=== PATIENT | male | born 1960 | race Caucasian/White ===

== ENCOUNTER 2016-06-13 09:45 | Emergency (ER) | payer OTHER, MEDICARE ==
--- NOTE | 2016-06-13 11:05 | ER Document Report ---
ED Medical Screen (RME) - General Time seen by provider: 11:02 Mode of Arrival: Ambulatory Information source: Patient TRAVEL OUTSIDE OF THE [place] IN LAST 30 DAYS: No <EWA CHILEL - Last Filed: 06/13/16 10:59> <CLIFFIBRAHIMA Morgan - Last Filed: 06/13/16 12:04> - General Chief Complaint: General Weakness Stated Complaint: POSSIBLE STROKE LIKE SYMPTOMS Notes: 55-year-old male complaining of generalized weakness and shaking since . EMT came to the house and the thought was anxiety he was given Valium. Take lithium as a mood stabilizer. PCP is Dr. Alcides Romero. He is confused thoughts at times. His son is here with him. (EWA CHILEL) - Related Data Allergies/Adverse Reactions: topiramate [From Topamax] Allergy (Verified 06/13/16 09:55) ziprasidone HCl [From Geodon] Allergy (Verified 06/13/16 09:55) ziprasidone mesylate [From Geodon] Allergy (Verified 06/13/16 09:55) Past Medical History - Past Medical History Cardiac Medical History: Reports: Hx Hypertension Denies: Hx Coronary Artery Disease, Hx Heart Attack Pulmonary Medical History: Reports: Hx Pneumonia Denies: Hx Asthma, Hx Bronchitis, Hx COPD Neurological Medical History: Denies: Hx Cerebrovascular Accident, Hx Seizures Endocrine Medical History: Reports: Hx Hypothyroidism Renal/ Medical History: Reports: Hx Kidney Stones. Denies: Hx Peritoneal Dialysis GI Medical History: Reports: Hx Hiatal Hernia - x2 Musculoskeltal Medical History: Reports Hx Arthritis Psychiatric Medical History: Reports: Hx Bipolar Disorder, Hx Depression Past Surgical History: Reports: Hx Abdominal Surgery - colonoscopy 01/2013, intestional rupture, Hx Appendectomy, Hx Cholecystectomy, Hx Kidney (Renal Surgery) - Left kidney cyst drainage, Hx Orthopedic Surgery - R elbow, R knee, Hx Tonsillectomy - Immunizations Hx Diphtheria, Pertussis, Tetanus Vaccination: Yes <EWA CHILEL - Last Filed: 06/13/16 10:59> Course - Laboratory Result Diagrams: 06/13/16 11:40 06/13/16 11:40 - Diagnostic Test Radiology reviewed: Reports reviewed - CT: No acute process - EKG Interpretation by Ia EKG shows normal: Sinus rhythm Rate: Normal - Heart rate 51, nonspecific ST flattening but no evidence of acute injury, normal QRS. <IBRAHIMA CORONADO - Last Filed: 06/13/16 12:04> - Vital Signs Vital signs: Temp Pulse Resp BP Pulse Ox 98.3 F 56 L 18 133/75 H 100 06/13/16 09:51 06/13/16 09:51 06/13/16 09:51 06/13/16 09:51 06/13/16 11:33 - Laboratory Laboratory results interpreted by me: 06/13/16 11:40 WBC 12.0 H MCHC 31.8 L RDW 16.9 H Seg Neutrophils % 78.1 H Absolute Neutrophils 9.4 H
[2016-06-13 12:01] LABS: ABSOLUTE BASOPHILS # (AUTO) 0.1 10^3/uL (0.0-0.2); ABSOLUTE EOSINOPHILS # (AUTO) 0.3 10^3/uL (0.0-0.6); ABSOLUTE LYMPHOCYTES (AUTO) 1.7 10^3/uL (0.5-4.7); ABSOLUTE MONOCYTES (AUTO) 0.6 10^3/uL (0.1-1.4); ABSOLUTE NEUT (AUTO) 9.4 10^3/uL (1.7-8.2); BASOPHILS % (AUTO) 0.7 % (0-2); EOSINOPHILS % (AUTO) 2.1 % (0-6); HEMATOCRIT 45.7 % (37.9-51.0); HEMOGLOBIN 14.5 g/dL (13.5-17.0); HGB HCT DIFFERENCE -2.2; LYMPHOCYTES % (AUTO) 13.8 % (13-45); MEAN CORPUSCULAR HEMOGLOBIN 28.6 pg (27.0-33.4); MEAN CORPUSCULAR HGB CONC 31.8 g/dL (32.0-36.0); MEAN CORPUSCULAR VOLUME 90 fl (80-97); MONOCYTES % (AUTO) 5.3 % (3-13); RED BLOOD COUNT 5.08 10^6/uL (4.35-5.55); RED CELL DISTRIBUTION WIDTH 16.9 % (11.5-14.0); SEGMENTED NEUTROPHILS % (AUTO) 78.1 % (42-78)
--- NOTE | 2016-06-13 12:03 | ER Document Report ---
ED General - General Mode of Arrival: Ambulatory Information source: Patient TRAVEL OUTSIDE OF THE [place] IN LAST 30 DAYS: No - HPI Patient complains to provider of: Leg Weakness Onset: Other - 06/11/2016 Associated symptoms: Weakness, Other - Confusion <RENETTA PENALOZA - Last Filed: 06/13/16 12:39> <IBRAHIMA CORONADO - Last Filed: 06/13/16 14:33> - General Chief Complaint: General Weakness Stated Complaint: POSSIBLE STROKE LIKE SYMPTOMS Notes: Patient is a 55-year-old male presenting to the emergency department concerned of weakness and trembling in his legs after he worked out on 2016. The leg weakness has improved slightly since then, but he has had increased confusion and loss of appetite. Patient also complains of epigastric abdominal pain and subjective fever. Patient denies diarrhea, vomiting, or any cold symptoms. Patient has a history of stroke 5 years ago, and he was scheduled to get an MRI, but did not get that performed due to his bipolar disorder, anxiety rendering him unable to sit still for 90 minutes. Patient also mentions that "something of axis in my brain has a chunk of fat on it." Patient's primary care physician is Dr. Dubon. (RENETTA PENALOZA) - Related Data Allergies/Adverse Reactions: topiramate [From Topamax] Allergy (Verified 06/13/16 09:55) ziprasidone HCl [From Geodon] Allergy (Verified 06/13/16 09:55) ziprasidone mesylate [From Geodon] Allergy (Verified 06/13/16 09:55) Past Medical History - General Information source: Patient, [facility] Records - Social History Smoking Status: Current Every Day Smoker Chew tobacco use (# tins/day): - 15 Frequency of alcohol use: None Drug Abuse: None Family History: Reviewed & Not Pertinent Patient has suicidal ideation: No Patient has homicidal ideation: No - Past Medical History Cardiac Medical History: Reports: Hx Hypertension Denies: Hx Coronary Artery Disease, Hx Heart Attack Pulmonary Medical History: Reports: Hx Pneumonia Denies: Hx Asthma, Hx Bronchitis, Hx COPD Neurological Medical History: Denies: Hx Cerebrovascular Accident, Hx Seizures Endocrine Medical History: Reports: Hx Hypothyroidism Renal/ Medical History: Reports: Hx Kidney Stones. Denies: Hx Peritoneal Dialysis GI Medical History: Reports: Hx Hiatal Hernia - x2 Musculoskeltal Medical History: Reports Hx Arthritis Psychiatric Medical History: Reports: Hx Bipolar Disorder, Hx Depression Past Surgical History: Reports: Hx Abdominal Surgery - colonoscopy 01/2013, intestional rupture, Hx Appendectomy, Hx Cholecystectomy, Hx Kidney (Renal Surgery) - Left kidney cyst drainage, Hx Orthopedic Surgery - R elbow, R knee, Hx Tonsillectomy - Immunizations Hx Diphtheria, Pertussis, Tetanus Vaccination: Yes <RENETTA PENALOZA - Last Filed: 06/13/16 12:39> Review of Systems - Review of Systems Constitutional: No symptoms reported EENT: No symptoms reported Cardiovascular: No symptoms reported Respiratory: No symptoms reported Gastrointestinal: No symptoms reported Genitourinary: No symptoms reported Male Genitourinary: No symptoms reported Musculoskeletal: No symptoms reported Skin: No symptoms reported Hematologic/Lymphatic: No symptoms reported Neurological/Psychological: See HPI, Confusion, Weakness, Tremor -: Yes All other systems reviewed and negative <RENETTA PENALOZA - Last Filed: 06/13/16 12:39> Physical Exam <RENETTA PENALOZA - Last Filed: 06/13/16 12:39> <IBRAHIMA CORONADO - Last Filed: 06/13/16 14:33> - Vital signs Vitals: Temp Pulse Resp BP Pulse Ox 98.3 F 56 L 18 133/75 H 98 06/13/16 09:51 06/13/16 09:51 06/13/16 09:51 06/13/16 09:51 06/13/16 09:51 - Notes Notes: GENERAL: VS as per nursing doc. Well-appearing, well-nourished and in no acute distress. Tremulous and anxious HEAD: Atraumatic, normocephalic. EYES: Pupils equal round and reactive to light, extraocular movements intact, sclera anicteric, no conjunctival injection or discharge. ENT: Nares patent, oropharynx clear without exudates. Moist mucous membranes. NECK: Normal range of motion, supple, no carotid bruits. LUNGS: Breath sounds clear to auscultation bilaterally and equal. No wheezes rales or rhonchi. Slightly coarse HEART: Normal S1S2. Regular rate and rhythm without murmurs. Equal peripheral pulses. ABDOMEN: Soft, non-tender. No appreciable mass. EXTREMITIES: Normal range of motion. No calf tenderness. Negative Homans. No edema. NEUROLOGICAL: GCS 15, Cranial nerves II-XII intact. Normal visual olivares. Normal speech without aphasia. No pronator drift. 5/5 RUE strength, 5/5 RLE strength, 5/5 LUE strength, 5/5 LLE strength. Patient is able to hold his extremities up but he is tremulous and they deviate outward. No cerebellar abnormalities including normal finger-nose testing. Negative Babinski, 2+= DTR refelexes. PSYCH: Very anxious appearing. Tremulous. No evidence of hallucinations or delusions. SKIN: Warm, Dry, no cyanosis, Cap refill < 2 sec. (IBRAHIMA CORONADO) Course - Laboratory Result Diagrams: 06/13/16 11:40 06/13/16 11:40 <RENETTA PENALOZA - Last Filed: 06/13/16 12:39> - Laboratory Result Diagrams: 06/13/16 11:40 06/13/16 11:40 <IBRAHIMA CORONADO - Last Filed: 06/13/16 14:33> - Re-evaluation Re-evalutation: 06/13/16 14:30 I reviewed lab findings with the patient and son. 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 He has the ataxia tremors loss of coordination. He will stop the lithium. He has never had lithium levels checked before and it has been increased slowly over the years. [facility]. I do not see signs consistent with acute TIA or CVA. Everything seems more global. (IBRAHIMA CORONADO) - Vital Signs Vital signs: Temp Pulse Resp BP Pulse Ox 98.3 F 56 L 17 114/69 97 06/13/16 09:51 06/13/16 09:51 06/13/16 13:01 06/13/16 13:01 06/13/16 13:01 - Laboratory Laboratory results interpreted by me: 06/13/16 06/13/16 06/13/16 11:40 11:40 11:50 WBC 12.0 H MCHC 31.8 L RDW 16.9 H Seg Neutrophils % 78.1 H Absolute Neutrophils 9.4 H Potassium 5.3 H Urine Ketones TRACE H [place] 1.4 H Discharge <RENETTA PENALOZA - Last Filed: 06/13/16 12:39> <IBRAHIMA CORONADO - Last Filed: 06/13/16 14:33> - Discharge Clinical Impression: Weakness, Loss of coordination, [place] toxicity Condition: Good Disposition: HOME, SELF-CARE Additional Instructions: Stop your lithium. Contact your prescribing physician on Wednesday for follow-up. Use assistance getting around so you do not fall. Return for worsening or concern. Referrals: ZOE WILLS MD [Primary Care Provider] - Follow up in 3-5 days Scribe Attestation: 06/13/16 14:33 I personally performed the services described in the documentation, reviewed and edited the documentation which was dictated to the scribe in my presence, and it accurately records my words and actions. (IBRAHIMA CORONADO) Scribe Documentation - Scribe Written by Ernie:: Renetta Penaloza 06/13/2016 1203 acting as scribe for :: Yasmin <RENETTA PENALOZA - Last Filed: 06/13/16 12:39>
[2016-06-13 12:10] LABS: APPEARANCE,URINE CLEAR; BILIRUBIN,URINE NEGATIVE (NEGATIVE); GLUCOSE, URINE NEGATIVE (NEGATIVE); KETONES,URINE TRACE mg/dL (NEGATIVE); LEUKOCYTE ESTERASE,URINE NEGATIVE (NEGATIVE); NITRITE,URINE NEGATIVE (NEGATIVE); PROTEIN,URINE NEGATIVE (NEGATIVE); UROBILINOGEN,URINE NEGATIVE mg/dL (<2.0)
[2016-06-13 12:19] LABS: ALANINE AMINOTRANSFERASE 38 U/L (21-72); ALBUMIN 3.7 g/dL (3.5-5.0); ALKALINE PHOSPHATASE 69 U/L (38-126); ANION GAP 10 (5-19); ASPARTATE AMINO TRANSFERASE 27 U/L (17-59); BILIRUBIN,DIRECT 0.4 mg/dL (0.0-0.4); BILIRUBIN,TOTAL 0.9 mg/dL (0.2-1.3); BLOOD UREA NITROGEN 11 mg/dL (7-20); CALCIUM 9.9 mg/dL (8.4-10.2); CARBON DIOXIDE 29 mmol/L (22-30); CHLORIDE 104 mmol/L (98-107); CREATINE KINASE 75 U/L (55-170); CREATININE RESULT 1.23 mg/dL (0.52-1.25); GLUCOSE 79 mg/dL (75-110); LITHIUM 1.4 mEq/L (0.6-1.2); MAGNESIUM 2.1 mg/dL (1.6-2.3); POTASSIUM 5.3 mmol/L (3.6-5.0); TOTAL PROTEIN 6.7 g/dL (6.3-8.2)
[2016-06-13 12:23] LABS: ALCOHOL < 10 mg/dL (NONE DETECTED)
[2016-06-13 12:29] LABS: URINE BARBITURATES SCREEN NEGATIVE; URINE METHADONE SCREEN NEGATIVE; URINE OPIATES LOW NEGATIVE; URINE PHENCYCLIDINE SCREEN NEGATIVE
[2016-06-13 12:44] LABS: CREATINE KINASE MB 0.35 ng/mL (<4.55); TROPONIN I < 0.012 ng/mL
[2016-06-13] MEDS ORDERED: NORMAL SALINE 500 ML IV ONE (14:07)
[2016-06-13 14:47] VITALS: BP 128/85
--- NOTE | 2016-06-14 17:04 | EKG REPORT ---
SEVERITY:- BORDERLINE ECG - SINUS RHYTHM BORDERLINE T WAVE ABNORMALITIES : Confirmed by: Denise Garcia MD 14-Jun-2016 17:02:22
== END 2016-06-13 14:51 | disposition home or self-care (01) ==
LOC: ER 09:45
DX: R53.1 Weakness (principal); R10.13 Epigastric pain; R41.0 Disorientation, unspecified; R63.0 Anorexia; F17.200 Nicotine dependence, unspecified, uncomplicated; Z79.899 Other long term (current) drug therapy
CPT/HCPCS: 93005; 99285; 96360; 36415; 82553; 82962; 80307 ×2; 82550; 83690; 80178; 83735; 85025; 80053; 81001; 84484; 70450; 93010; J7040

== ENCOUNTER 2016-06-25 16:51 | Emergency (ER) | payer OTHER, MEDICARE ==
[2016-06-25] MEDS ORDERED: ONDANSETRON HCL INJ/PF 4 MG/2 ML SDV IV ONE (18:12)
[2016-06-25] MEDS ORDERED: HYDROMORPHONE HCL INJ/PF 2 MG/ML AMPULE IV ONE (18:12)
[2016-06-25] MEDS ORDERED: NORMAL SALINE 1000 ML 1,000 ML IV ONE (18:12)
--- NOTE | 2016-06-25 18:18 | ER Document Report ---
ED Medical Screen (RME) - General Chief Complaint: Abdominal Pain Stated Complaint: FEVER,ABDOMINAL PAIN Mode of Arrival: Ambulatory Information source: Patient TRAVEL OUTSIDE OF THE [place] IN LAST 30 DAYS: No - HPI Onset: Yesterday - LAST PM Onset/Duration: Sudden Quality of pain: Achy, Dull Severity: Moderate Associated Symptoms: Abdominal pain, Chills, Fever, Nausea, Vomiting Exacerbated by: Denies Relieved by: Denies Similar symptoms previously: Yes - PANCREATITIS Recently seen / treated by doctor: No - Related Data Smoking: Non-smoker Frequency of alcohol use: None Drug Abuse: None Allergies/Adverse Reactions: topiramate [From Topamax] Allergy (Verified 06/25/16 18:01) ziprasidone HCl [From Geodon] Allergy (Verified 06/25/16 18:01) ziprasidone mesylate [From Geodon] Allergy (Verified 06/25/16 18:01) Past Medical History - General Information source: Patient - Social History Cigarette use (# per day): No Chew tobacco use (# tins/day): No Frequency of alcohol use: None Drug Abuse: None Lives with: Family Family history: Reviewed & Not Pertinent - Past Medical History Cardiac Medical History: Reports: Hx Hypertension Denies: Hx Coronary Artery Disease, Hx Heart Attack Pulmonary Medical History: Reports: Hx Pneumonia Denies: Hx Asthma, Hx Bronchitis, Hx COPD Neurological Medical History: Denies: Hx Cerebrovascular Accident, Hx Seizures Endocrine Medical History: Reports: Hx Hypothyroidism Renal/ Medical History: Reports: Hx Kidney Stones. Denies: Hx Peritoneal Dialysis GI Medical History: Reports: Hx Hiatal Hernia - x2, Other - PANCREATITIS Musculoskeltal Medical History: Reports Hx Arthritis Psychiatric Medical History: Reports: Hx Bipolar Disorder, Hx Depression Past Surgical History: Reports: Hx Abdominal Surgery - colonoscopy 01/2013, intestional rupture, Hx Appendectomy, Hx Cholecystectomy, Hx Kidney (Renal Surgery) - Left kidney cyst drainage, Hx Orthopedic Surgery - R elbow, R knee, Hx Tonsillectomy - Immunizations Hx Diphtheria, Pertussis, Tetanus Vaccination: Yes Review of Systems - Review of Systems Constitutional: See HPI EENT: No symptoms reported Cardiovascular: No symptoms reported Respiratory: No symptoms reported Gastrointestinal: See HPI Genitourinary: No symptoms reported Musculoskeletal: No symptoms reported Neurological/Psychological: No symptoms reported Physical Exam - Vital signs Vitals: Temp Pulse Resp BP Pulse Ox 98.5 F 65 18 123/75 97 06/25/16 16:56 06/25/16 16:56 06/25/16 16:56 06/25/16 16:56 06/25/16 16:56 Interpretation: Normal - General General appearance: Alert In distress: Mild - HEENT Head: Normocephalic Eyes: Normal Conjunctiva: Normal Ears: Normal Nasal: Normal Mouth/Lips: Normal Mucous membranes: Dry Pharynx: Normal Neck: Normal - Respiratory Respiratory status: No respiratory distress - Cardiovascular Rhythm: Regular - Abdominal Tenderness: Tender - EPIGASTRIUM - Extremities General upper extremity: Normal inspection General lower extremity: Normal inspection - Neurological Neuro grossly intact: Yes Cognition: Normal Orientation: AAOx4 - Psychological Associated symptoms: Normal affect, Normal mood - Skin Skin Temperature: Warm Skin Moisture: Dry Skin Color: Normal Skin Turgor: Elastic Course - Vital Signs Vital signs: Temp Pulse Resp BP Pulse Ox 98.5 F 65 18 123/75 97 06/25/16 16:56 06/25/16 16:56 06/25/16 16:56 06/25/16 16:56 06/25/16 16:56
[2016-06-25 18:34] LABS: ABSOLUTE BASOPHILS # (AUTO) 0.1 10^3/uL (0.0-0.2); ABSOLUTE EOSINOPHILS # (AUTO) 0.1 10^3/uL (0.0-0.6); ABSOLUTE LYMPHOCYTES (AUTO) 1.9 10^3/uL (0.5-4.7); ABSOLUTE MONOCYTES (AUTO) 0.7 10^3/uL (0.1-1.4); ABSOLUTE NEUT (AUTO) 7.8 10^3/uL (1.7-8.2); BASOPHILS % (AUTO) 0.5 % (0-2); EOSINOPHILS % (AUTO) 1.2 % (0-6); HEMATOCRIT 51.3 % (37.9-51.0); HEMOGLOBIN 16.4 g/dL (13.5-17.0); HGB HCT DIFFERENCE -2.1; MEAN CORPUSCULAR HEMOGLOBIN 28.4 pg (27.0-33.4); MEAN CORPUSCULAR HGB CONC 32.1 g/dL (32.0-36.0); MEAN CORPUSCULAR VOLUME 88 fl (80-97); MONOCYTES % (AUTO) 6.2 % (3-13); RED CELL DISTRIBUTION WIDTH 17.6 % (11.5-14.0); SEGMENTED NEUTROPHILS % (AUTO) 74.1 % (42-78); WHITE BLOOD COUNT 10.5 10^3/uL (4.0-10.5)
[2016-06-25 18:37] LABS: APPEARANCE,URINE SLIGHTLY-CLOUDY; BILIRUBIN,URINE NEGATIVE (NEGATIVE); GLUCOSE, URINE NEGATIVE (NEGATIVE); KETONES,URINE TRACE mg/dL (NEGATIVE); LEUKOCYTE ESTERASE,URINE NEGATIVE (NEGATIVE); NITRITE,URINE NEGATIVE (NEGATIVE); PROTEIN,URINE 30 mg/dL (NEGATIVE); URINE SPECIFIC GRAVITY 1.024; UROBILINOGEN,URINE NEGATIVE mg/dL (<2.0)
[2016-06-25] MEDS ORDERED: PANTOPRAZOLE SODIUM 40 MG VIAL IV ONE (18:51)
--- NOTE | 2016-06-25 18:51 | ER Document Report ---
ED General - General Chief Complaint: Abdominal Pain Stated Complaint: FEVER,ABDOMINAL PAIN Mode of Arrival: Ambulatory Notes: This is a 55-year-old male with a history of bipolar disorder and anxiety as well as hypertension and prior pancreatitis who presents for evaluation of epigastric pain. He states that he feels that he may have pancreatitis again. His symptoms began about 2230 last night when he states he was laying in bed and suddenly felt as if he was "punched in the gut" he has had epigastric pain since. He has had nausea and dry heaves today and has not tolerated any po except a few sips of water. One episode of diarrhea this morning. No fevers, chills, dysuria, chest pain, SOB. States he quit drinking alcohol about 6 years ago. S/P cholecystectomy 04/2015 TRAVEL OUTSIDE OF THE [place] IN LAST 30 DAYS: No - Related Data Allergies/Adverse Reactions: topiramate [From Topamax] Allergy (Verified 06/25/16 18:01) ziprasidone HCl [From Geodon] Allergy (Verified 06/25/16 18:01) ziprasidone mesylate [From Geodon] Allergy (Verified 06/25/16 18:01) Past Medical History - General Information source: Patient, [facility] Records - Social History Smoking Status: Current Every Day Smoker Cigarette use (# per day): No Chew tobacco use (# tins/day): No Frequency of alcohol use: None Drug Abuse: None Lives with: Family Family History: Reviewed & Not Pertinent Patient has suicidal ideation: No Patient has homicidal ideation: No - Past Medical History Cardiac Medical History: Reports: Hx Hypertension Denies: Hx Coronary Artery Disease, Hx Heart Attack Pulmonary Medical History: Reports: Hx Pneumonia Denies: Hx Asthma, Hx Bronchitis, Hx COPD Neurological Medical History: Denies: Hx Cerebrovascular Accident, Hx Seizures Endocrine Medical History: Reports: Hx Hypothyroidism Renal/ Medical History: Reports: Hx Kidney Stones. Denies: Hx Peritoneal Dialysis GI Medical History: Reports: Hx Hiatal Hernia - x2, Other - PANCREATITIS Musculoskeltal Medical History: Reports Hx Arthritis Psychiatric Medical History: Reports: Hx Bipolar Disorder, Hx Depression Past Surgical History: Reports: Hx Abdominal Surgery - colonoscopy 01/2013, intestional rupture, Hx Appendectomy, Hx Cholecystectomy, Hx Kidney (Renal Surgery) - Left kidney cyst drainage, Hx Orthopedic Surgery - R elbow, R knee, Hx Tonsillectomy - Immunizations Hx Diphtheria, Pertussis, Tetanus Vaccination: Yes Review of Systems - Review of Systems Notes: REVIEW OF SYSTEMS: CONSTITUTIONAL : Denies fever, chills, or sweats. Denies recent illness. EENT: Denies eye, ear, throat, or mouth pain or symptoms. Denies nasal or sinus congestion. CARDIOVASCULAR: Denies chest pain. RESPIRATORY: Denies cough, cold, or chest congestion. Denies shortness of breath, difficulty breathing, or wheezing. GASTROINTESTINAL: As per history of present illness GENITOURINARY: Denies difficulty urinating, painful urination, burning, frequency, or blood in urine. MUSCULOSKELETAL: Denies neck or back pain or joint pain or swelling. SKIN: Denies rash or skin lesions. HEMATOLOGIC : Denies easy bruising or bleeding. LYMPHATIC: Denies swollen, enlarged glands. NEUROLOGICAL: Denies altered mental status or loss of consciousness. Denies headache. PSYCHIATRIC: Denies anxiety or stress or depression. ALL OTHER SYSTEMS REVIEWED AND NEGATIVE. Physical Exam - Vital signs Vitals: Temp Pulse Resp BP Pulse Ox 98.5 F 65 18 123/75 97 06/25/16 16:56 06/25/16 16:56 06/25/16 16:56 06/25/16 16:56 06/25/16 16:56 - Notes Notes: PHYSICAL EXAMINATION: GENERAL: Well-appearing, well-nourished and in no acute distress. Pleasant and conversant, somewhat pressured speech. HEAD: Atraumatic, normocephalic. EYES: Pupils equal round and reactive to light, extraocular movements intact, sclera anicteric, conjunctiva are normal. ENT: nares patent, oropharynx clear without exudates. Moist mucous membranes. NECK: Normal range of motion, supple without lymphadenopathy LUNGS: Breath sounds clear to auscultation bilaterally and equal. No wheezes rales or rhonchi. HEART: Regular rate and rhythm without murmurs ABDOMEN: Soft, normoactive bowel sounds. Tenderness to palpation in epigastric area and LUQ. No guarding, no rebound. No masses appreciated. EXTREMITIES: Normal range of motion, no pitting or edema. No cyanosis. NEUROLOGICAL: Cranial nerves grossly intact. Normal speech. No gross focal motor or sensory deficits appreciated. PSYCH: Normal mood, somewhat anxious affect. SKIN: Warm, Dry, normal turgor, no rashes or lesions noted. Course - Re-evaluation Re-evalutation: 06/25/16 22:14 Patient had resolution of symptoms after the GI cocktail. Labs and CT reassuring, no evidence for pancreatitis or surgical issue at this time. Discussed dyspepsia, GERD, and dietary modification. Follow up PCP. Return precautions discussed. - Vital Signs Vital signs: Temp Pulse Resp BP Pulse Ox 98.5 F 65 15 109/64 95 06/25/16 16:56 06/25/16 16:56 06/25/16 21:47 06/25/16 21:47 06/25/16 21:47 - Laboratory Result Diagrams: 06/25/16 18:05 06/25/16 18:05 Laboratory results interpreted by me: 06/25/16 06/25/16 06/25/16 18:05 18:05 18:05 RBC 5.80 H Hct 51.3 H RDW 17.6 H Sodium 145.5 H Glucose 71 L Direct Bilirubin 0.5 H ALT 75 H Urine Protein 30 H Urine Ketones TRACE H Urine Ascorbic Acid 40 H Discharge - Discharge Clinical Impression: Dyspepsia, Anxiety Condition: Stable Disposition: HOME, SELF-CARE Additional Instructions: Reflux Disease (GERD) Gastro-Esophageal Reflux Disease (GERD) is caused by stomach acid refluxing back up into the esophagus. The valve at the end of the esophagus may be weak. This is common in persons with a hiatal hernia. GERD symptoms can include indigestion, chest pain, heartburn, or food "sticking." Certain foods, alcohol, and aspirin can make GERD worse. Treatment depends on the severity. Usually, antacids or acid-suppressing medicines are used. When the esophagus is acutely inflamed, the physician will often prescribe membrane-protective drugs such as Carafate. Some patients benefit from medication such as Reglan that tightens the valve at the top of the stomach. Avoid those foods that bring on your symptoms. For many people, these foods are coffee, chocolate, onions, garlic, and carbonated drinks. Don't use alcohol, aspirin, caffeine, or tobacco. Don't eat late at night -- within 4 hours of bedtime. Don't over-eat. If necessary, elevate the head of your bed about 4 inches so that stomach acid will not roll up into your esophagus. Call the doctor if you develop severe chest pain, inability to swallow fluids, fever, or worsening symptoms. Prescriptions: Sucralfate [Carafate Susp 1 Gm/10 Ml Udcup] 1 gm PO QHS #200 ud Referrals: ZOE WILLS MD [Primary Care Provider] - Follow up in 3-5 days
[2016-06-25 18:57] LABS: ALANINE AMINOTRANSFERASE 75 U/L (21-72); ALKALINE PHOSPHATASE 63 U/L (38-126); ANION GAP 15 (5-19); ASPARTATE AMINO TRANSFERASE 41 U/L (17-59); BILIRUBIN,DIRECT 0.5 mg/dL (0.0-0.4); BILIRUBIN,TOTAL 0.6 mg/dL (0.2-1.3); BLOOD UREA NITROGEN 18 mg/dL (7-20); CALCIUM 9.5 mg/dL (8.4-10.2); CARBON DIOXIDE 29 mmol/L (22-30); CHLORIDE 102 mmol/L (98-107); CREATININE RESULT 1.15 mg/dL (0.52-1.25); GLUCOSE 71 mg/dL (75-110); LIPASE 103.4 U/L (23-300); POTASSIUM 4.8 mmol/L (3.6-5.0); SODIUM 145.5 mmol/L (137-145); TOTAL PROTEIN 7.4 g/dL (6.3-8.2)
[2016-06-25 19:13] LABS: URINE BARBITURATES SCREEN NEGATIVE; URINE METHADONE SCREEN NEGATIVE; URINE OPIATES LOW NEGATIVE; URINE PHENCYCLIDINE SCREEN NEGATIVE
[2016-06-25] MEDS ORDERED: MAG HYDROX/AL HYDROX/SIMETH SUSP 30 ML UDCUP PO ONE (19:17)
[2016-06-25] MEDS ORDERED: METOCLOPRAMIDE HCL ORAL SOLN 10 MG/10 ML UDCUP PO ONE (19:17)
[2016-06-25] MEDS ORDERED: LIDOCAINE 2% VISCOUS SOLN 20 ML UDCUP PO ONE (19:17)
[2016-06-25 22:23] VITALS: BP 119/72
== END 2016-06-25 22:33 | disposition home or self-care (01) ==
LOC: ER 16:51
DX: R10.13 Epigastric pain (principal); F41.9 Anxiety disorder, unspecified; R10.9 Unspecified abdominal pain; R50.9 Fever, unspecified; F31.9 Bipolar disorder, unspecified; F17.200 Nicotine dependence, unspecified, uncomplicated
CPT/HCPCS: 99284; 96374; 96375; 36415; 80307 ×2; 83690; 85025; 80053; 81001; 74177; J3490; J1170; S0164; J2405; J7030

== ENCOUNTER 2016-07-24 11:53 | Emergency (ER) | payer OTHER, MEDICARE ==
--- NOTE | 2016-07-24 12:59 | ER Document Report ---
ED Medical Screen (RME) - General Chief Complaint: Abdominal Pain Stated Complaint: ABDOMINAL PAIN,NAUSEA Time Seen by Provider: 07/24/16 12:52 Mode of Arrival: Ambulatory Information source: Patient TRAVEL OUTSIDE OF THE [place] IN LAST 30 DAYS: No - HPI Onset: Other - 5 DAYS Onset/Duration: Gradual Quality of pain: Achy, Dull Severity: Moderate Associated Symptoms: Nausea, Vomiting Exacerbated by: Denies Relieved by: Other - POSTURE Similar symptoms previously: Yes - CHRONIC RECURRENT PANCRATITIS Recently seen / treated by doctor: Yes - [facility] THIS AM - Related Data Allergies/Adverse Reactions: topiramate [From Topamax] Allergy (Verified 07/24/16 11:57) ziprasidone HCl [From Geodon] Allergy (Verified 07/24/16 11:57) ziprasidone mesylate [From Geodon] Allergy (Verified 07/24/16 11:57) Past Medical History - Social History Family history: Reviewed & Not Pertinent - Past Medical History Cardiac Medical History: Reports: Hx Hypertension Denies: Hx Coronary Artery Disease, Hx Heart Attack Pulmonary Medical History: Reports: Hx Pneumonia Denies: Hx Asthma, Hx Bronchitis, Hx COPD Neurological Medical History: Denies: Hx Cerebrovascular Accident, Hx Seizures Endocrine Medical History: Reports: Hx Hypothyroidism Renal/ Medical History: Reports: Hx Kidney Stones. Denies: Hx Peritoneal Dialysis GI Medical History: Reports: Hx Hiatal Hernia - x2, Other - CHRONIC RECURRENT PANCREATITIS Musculoskeltal Medical History: Reports Hx Arthritis Psychiatric Medical History: Reports: Hx Bipolar Disorder, Hx Depression Past Surgical History: Reports: Hx Abdominal Surgery - colonoscopy 01/2013, intestional rupture, Hx Appendectomy, Hx Cholecystectomy, Hx Kidney (Renal Surgery) - Left kidney cyst drainage, Hx Orthopedic Surgery - R elbow, R knee, Hx Tonsillectomy - Immunizations Hx Diphtheria, Pertussis, Tetanus Vaccination: Yes Review of Systems - Review of Systems Constitutional: No symptoms reported EENT: No symptoms reported Cardiovascular: No symptoms reported Respiratory: No symptoms reported Gastrointestinal: See HPI Physical Exam - Vital signs Vitals: Temp Pulse Resp BP Pulse Ox 98.2 F 63 20 138/90 H 98 07/24/16 11:57 07/24/16 11:57 07/24/16 11:57 07/24/16 11:57 07/24/16 11:57 Interpretation: Hypertensive. No: Tachycardic, Tachypneic, Febrile - General General appearance: Anxious In distress: Mild - HEENT Mucous membranes: Dry - Respiratory Respiratory status: No respiratory distress - Abdominal Inspection: Normal Distension: No distension Tenderness: Tender - EPIGASTRIC Course - Vital Signs Vital signs: Temp Pulse Resp BP Pulse Ox 98.2 F 63 20 138/90 H 98 07/24/16 11:57 07/24/16 11:57 07/24/16 11:57 07/24/16 11:57 07/24/16 11:57
[2016-07-24] MEDS ORDERED: NORMAL SALINE 1000 ML 1,000 ML IV ONE (13:17)
[2016-07-24 14:01] LABS: ALANINE AMINOTRANSFERASE 43 U/L (21-72); ALBUMIN 3.9 g/dL (3.5-5.0); ALKALINE PHOSPHATASE 47 U/L (38-126); ANION GAP 11 (5-19); ASPARTATE AMINO TRANSFERASE 35 U/L (17-59); BILIRUBIN,DIRECT 0.5 mg/dL (0.0-0.4); BILIRUBIN,TOTAL 0.9 mg/dL (0.2-1.3); BLOOD UREA NITROGEN 18 mg/dL (7-20); CALCIUM 9.6 mg/dL (8.4-10.2); CARBON DIOXIDE 28 mmol/L (22-30); CHLORIDE 101 mmol/L (98-107); CREATININE RESULT 1.24 mg/dL (0.52-1.25); GLUCOSE 76 mg/dL (75-110); LIPASE 119.1 U/L (23-300); POTASSIUM 5.1 mmol/L (3.6-5.0); SODIUM 140.2 mmol/L (137-145); TOTAL PROTEIN 7.4 g/dL (6.3-8.2)
[2016-07-24] MEDS ORDERED: ONDANSETRON HCL INJ/PF 4 MG/2 ML SDV IV ONE (14:22)
[2016-07-24] MEDS ORDERED: NORMAL SALINE 1000 ML 1,000 ML IV PRN (14:22)
[2016-07-24] MEDS ORDERED: MORPHINE SULFATE 10 MG/ML INJ IV ONE (14:22)
--- NOTE | 2016-07-24 14:23 | ER Document Report ---
ED GI/ - General Chief Complaint: Abdominal Pain Stated Complaint: ABDOMINAL PAIN,NAUSEA Time Seen by Provider: 07/24/16 12:52 Mode of Arrival: Ambulatory Information source: Patient TRAVEL OUTSIDE OF THE [place] IN LAST 30 DAYS: No - HPI Patient complains to provider of: Abdominal pain Onset: This morning Timing/Duration: Sudden Quality of pain: Sharp, Stabbing Severity at maximum: Moderate Severity in ED: Moderate Pain Level: 4 Location: Epigastric Associated symptoms: Nausea Exacerbated by: Food Relieved by: Denies Similar symptoms previously: Yes Recently seen / treated by doctor: No Notes: 07/24/16 16:10 Patient is a 56-year-old male with a history of pancreatitis, with cholecystectomy last year, who presents to the emergency room complaining of epigastric abdominal pain that is sharp and stabbing in nature, it is been going on intermittently over the past 3-5 days but worsened today, it is associated with nausea one episode of vomiting, no fever, no diarrhea she denies urinary symptoms - Related Data Allergies/Adverse Reactions: topiramate [From Topamax] Allergy (Verified 07/24/16 11:57) ziprasidone HCl [From Geodon] Allergy (Verified 07/24/16 11:57) ziprasidone mesylate [From Geodon] Allergy (Verified 07/24/16 11:57) Past Medical History - General Information source: Patient - Social History Smoking Status: Current Every Day Smoker Family History: Reviewed & Not Pertinent Patient has suicidal ideation: No Patient has homicidal ideation: No - Past Medical History Cardiac Medical History: Reports: Hx Hypertension Denies: Hx Coronary Artery Disease, Hx Heart Attack Pulmonary Medical History: Reports: Hx Pneumonia Denies: Hx Asthma, Hx Bronchitis, Hx COPD Neurological Medical History: Denies: Hx Cerebrovascular Accident, Hx Seizures Endocrine Medical History: Reports: Hx Hypothyroidism Renal/ Medical History: Reports: Hx Kidney Stones. Denies: Hx Peritoneal Dialysis GI Medical History: Reports: Hx Hiatal Hernia - x2, Other - CHRONIC RECURRENT PANCREATITIS Musculoskeltal Medical History: Reports Hx Arthritis Psychiatric Medical History: Reports: Hx Bipolar Disorder, Hx Depression Past Surgical History: Reports: Hx Abdominal Surgery - colonoscopy 01/2013, intestional rupture, Hx Appendectomy, Hx Cholecystectomy, Hx Kidney (Renal Surgery) - Left kidney cyst drainage, Hx Orthopedic Surgery - R elbow, R knee, Hx Tonsillectomy - Immunizations Hx Diphtheria, Pertussis, Tetanus Vaccination: Yes Review of Systems - Review of Systems Constitutional: No symptoms reported EENT: No symptoms reported Cardiovascular: No symptoms reported Respiratory: No symptoms reported Gastrointestinal: Abdominal pain, Nausea, Vomiting Genitourinary: No symptoms reported Male Genitourinary: No symptoms reported Musculoskeletal: No symptoms reported Skin: No symptoms reported Hematologic/Lymphatic: No symptoms reported Neurological/Psychological: No symptoms reported -: Yes All other systems reviewed and negative Physical Exam - Vital signs Vitals: Temp Pulse Resp BP Pulse Ox 98.2 F 63 20 138/90 H 98 07/24/16 11:57 07/24/16 11:57 07/24/16 11:57 07/24/16 11:57 07/24/16 11:57 Interpretation: Normal - General General appearance: Appears well, Alert - HEENT Head: Normocephalic, Atraumatic Eyes: Normal Pupils: PERRL - Respiratory Respiratory status: No respiratory distress Chest status: Nontender Breath sounds: Normal Chest palpation: Normal - Cardiovascular Rhythm: Regular Heart sounds: Normal auscultation Murmur: No - Abdominal Inspection: Normal Distension: No distension Bowel sounds: Normal Tenderness: Tender - Palpate in the epigastric region Organomegaly: No organomegaly - Back Back: Normal, Nontender - Extremities General upper extremity: Normal inspection, Nontender, Normal color, Normal ROM , Normal temperature General lower extremity: Normal inspection, Nontender, Normal color, Normal ROM , Normal temperature, Normal weight bearing. No: Alaina's sign - Neurological Neuro grossly intact: Yes Cognition: Normal Orientation: AAOx4 Ralph Coma Scale Eye Opening: Spontaneous Ralph Coma Scale Verbal: Oriented Ralph Coma Scale Motor: Obeys Commands Ralph Coma Scale Total: 15 Speech: Normal Motor strength normal: LUE, RUE, LLE, RLE Sensory: Normal - Psychological Associated symptoms: Normal affect, Normal mood - Skin Skin Temperature: Warm Skin Moisture: Dry Skin Color: Normal Course - Re-evaluation Re-evalutation: 07/24/16 17:09 Resting comfortably, reports relief of symptoms from GI cocktail, labs were discussed with patient at bedside, follow-up with gastroenterology as an outpatient was recommended, patient will a small amount of pain medication in the meantime, advised to follow-up with gastroenterology within the next week or return if symptoms worsen, patient acknowledges understanding and agreement with this plan - Vital Signs Vital signs: Temp Pulse Resp BP Pulse Ox 98.2 F 63 20 138/90 H 98 07/24/16 11:57 07/24/16 11:57 07/24/16 11:57 07/24/16 11:57 07/24/16 11:57 - Laboratory Result Diagrams: 07/24/16 14:37 07/24/16 13:30 Laboratory results interpreted by me: 07/24/16 07/24/16 07/24/16 13:30 13:30 14:37 RBC 5.86 H RDW 17.8 H Potassium 5.1 H Direct Bilirubin 0.5 H Urine Ketones TRACE H Discharge - Discharge Clinical Impression: Epigastric abdominal pain Condition: Stable Disposition: HOME, SELF-CARE Instructions: Abdominal Pain ([facility]), Oral Narcotic Medication ([facility]), Gastroenterology Additional Instructions: Follow up with your primary care provider and a forge hand in one to 2 days. Return to the emergency room immediately if symptoms worsen or any additional concerns. Prescriptions: Oxycodone HCl/Acetaminophen [Percocet 5-325 mg Tablet] 1 - 2 tab PO ASDIR PRN # 15 tablet PRN Reason:
[2016-07-24 14:35] LABS: APPEARANCE,URINE CLEAR; BILIRUBIN,URINE NEGATIVE (NEGATIVE); GLUCOSE, URINE NEGATIVE (NEGATIVE); KETONES,URINE TRACE mg/dL (NEGATIVE); LEUKOCYTE ESTERASE,URINE NEGATIVE (NEGATIVE); NITRITE,URINE NEGATIVE (NEGATIVE); PROTEIN,URINE NEGATIVE (NEGATIVE); URINE SPECIFIC GRAVITY 1.017; UROBILINOGEN,URINE NEGATIVE mg/dL (<2.0)
[2016-07-24 14:47] LABS: ABSOLUTE BASOPHILS # (AUTO) 0.1 10^3/uL (0.0-0.2); ABSOLUTE EOSINOPHILS # (AUTO) 0.2 10^3/uL (0.0-0.6); ABSOLUTE MONOCYTES (AUTO) 0.7 10^3/uL (0.1-1.4); ABSOLUTE NEUT (AUTO) 4.9 10^3/uL (1.7-8.2); BASOPHILS % (AUTO) 1.3 % (0-2); HEMATOCRIT 48.5 % (37.9-51.0); HEMOGLOBIN 15.8 g/dL (13.5-17.0); HGB HCT DIFFERENCE -1.1; LYMPHOCYTES % (AUTO) 25.5 % (13-45); MEAN CORPUSCULAR HGB CONC 32.6 g/dL (32.0-36.0); MONOCYTES % (AUTO) 8.8 % (3-13); RED BLOOD COUNT 5.86 10^6/uL (4.35-5.55); RED CELL DISTRIBUTION WIDTH 17.8 % (11.5-14.0); SEGMENTED NEUTROPHILS % (AUTO) 61.4 % (42-78)
[2016-07-24 14:54] LABS: MEAN CORPUSCULAR VOLUME 83 fl (80-97)
[2016-07-24] MEDS ORDERED: METOCLOPRAMIDE HCL ORAL SOLN 10 MG/10 ML UDCUP PO ONE (15:51)
[2016-07-24] MEDS ORDERED: LIDOCAINE 2% VISCOUS SOLN 20 ML UDCUP PO ONE (15:51)
[2016-07-24] MEDS ORDERED: MAG HYDROX/AL HYDROX/SIMETH SUSP 30 ML UDCUP PO ONE (15:51)
[2016-07-24 17:34] VITALS: BP 148/83
== END 2016-07-24 17:36 | disposition home or self-care (01) ==
LOC: ER 11:53
DX: R10.13 Epigastric pain (principal); R11.0 Nausea; F17.200 Nicotine dependence, unspecified, uncomplicated
CPT/HCPCS: 99284; 96374; 96375; 36415; 83690; 85025; 80053; 81001; J3490; J2270; J2405; J7030

== ENCOUNTER 2016-07-29 02:57 | Emergency (ER) | payer OTHER, MEDICARE ==
[2016-07-29 03:37] LABS: ABSOLUTE BASOPHILS # (AUTO) 0.1 10^3/uL (0.0-0.2); ABSOLUTE EOSINOPHILS # (AUTO) 0.3 10^3/uL (0.0-0.6); ABSOLUTE LYMPHOCYTES (AUTO) 2.8 10^3/uL (0.5-4.7); ABSOLUTE MONOCYTES (AUTO) 0.9 10^3/uL (0.1-1.4); ABSOLUTE NEUT (AUTO) 4.2 10^3/uL (1.7-8.2); EOSINOPHILS % (AUTO) 3.2 % (0-6); HEMATOCRIT 48.6 % (37.9-51.0); HEMOGLOBIN 15.7 g/dL (13.5-17.0); HGB HCT DIFFERENCE -1.5; LYMPHOCYTES % (AUTO) 33.9 % (13-45); MEAN CORPUSCULAR HEMOGLOBIN 26.9 pg (27.0-33.4); MEAN CORPUSCULAR HGB CONC 32.3 g/dL (32.0-36.0); MEAN CORPUSCULAR VOLUME 83 fl (80-97); MONOCYTES % (AUTO) 10.9 % (3-13); RED BLOOD COUNT 5.84 10^6/uL (4.35-5.55); RED CELL DISTRIBUTION WIDTH 18.1 % (11.5-14.0); WHITE BLOOD COUNT 8.3 10^3/uL (4.0-10.5)
[2016-07-29 03:50] LABS: ALANINE AMINOTRANSFERASE 35 U/L (21-72); ALBUMIN 3.6 g/dL (3.5-5.0); ALKALINE PHOSPHATASE 40 U/L (38-126); ANION GAP 9 (5-19); ASPARTATE AMINO TRANSFERASE 27 U/L (17-59); BILIRUBIN,DIRECT 0.4 mg/dL (0.0-0.4); BILIRUBIN,TOTAL 0.6 mg/dL (0.2-1.3); BLOOD UREA NITROGEN 17 mg/dL (7-20); CALCIUM 9.3 mg/dL (8.4-10.2); CARBON DIOXIDE 29 mmol/L (22-30); CHLORIDE 103 mmol/L (98-107); CREATININE RESULT 1.25 mg/dL (0.52-1.25); GLUCOSE 86 mg/dL (75-110); LIPASE 236.5 U/L (23-300); SODIUM 140.9 mmol/L (137-145); TOTAL PROTEIN 6.9 g/dL (6.3-8.2)
[2016-07-29 03:54] LABS: APPEARANCE,URINE CLEAR; BILIRUBIN,URINE NEGATIVE (NEGATIVE); GLUCOSE, URINE NEGATIVE (NEGATIVE); KETONES,URINE NEGATIVE (NEGATIVE); LEUKOCYTE ESTERASE,URINE TRACE (NEGATIVE); NITRITE,URINE NEGATIVE (NEGATIVE); PROTEIN,URINE NEGATIVE (NEGATIVE); URINE SPECIFIC GRAVITY 1.011; UROBILINOGEN,URINE NEGATIVE mg/dL (<2.0)
--- NOTE | 2016-07-29 04:05 | ER Document Report ---
ED GI/ - General Chief Complaint: Abdominal Pain Stated Complaint: ABDOMINAL PAIN Time Seen by Provider: 07/29/16 04:04 Mode of Arrival: Ambulatory Information source: Patient Notes: 56-year-old male complaining of sudden onset of right upper quadrant abdominal pain that felt like an explosion and radiated to his rectum at 0200. Caused him to bend forward, and was nauseated. He had dull low right-sided back pain yesterday during the day but did not really pay attention to it. Had diarrhea for a day and a half and history of colitis. He did see red blood when he wiped yesterday. History of cholecystectomy, appendectomy, hernia repair, left kidney cyst drained No fever or chills TRAVEL OUTSIDE OF THE [place] IN LAST 30 DAYS: No - Related Data Allergies/Adverse Reactions: topiramate [From Topamax] Allergy (Verified 07/24/16 11:57) ziprasidone HCl [From Geodon] Allergy (Verified 07/24/16 11:57) ziprasidone mesylate [From Geodon] Allergy (Verified 07/24/16 11:57) Past Medical History - General Information source: Patient - Social History Smoking Status: Current Every Day Smoker Frequency of alcohol use: None Drug Abuse: None Lives with: Family Family History: Reviewed & Not Pertinent Patient has suicidal ideation: No Patient has homicidal ideation: No - Past Medical History Cardiac Medical History: Reports: Hx Hypertension Pulmonary Medical History: Reports: Hx Pneumonia Endocrine Medical History: Reports: Hx Hypothyroidism Renal/ Medical History: Reports: Hx Kidney Stones. Denies: Hx Peritoneal Dialysis GI Medical History: Reports: Hx Hiatal Hernia - x2 Musculoskeltal Medical History: Reports Hx Arthritis Psychiatric Medical History: Reports: Hx Bipolar Disorder, Hx Depression Past Surgical History: Reports: Hx Abdominal Surgery - colonoscopy 01/2013, SBO , Hx Appendectomy, Hx Cholecystectomy, Hx Kidney (Renal Surgery) - Left kidney cyst drainage, Hx Orthopedic Surgery - R elbow, R knee, Hx Tonsillectomy - Immunizations Hx Diphtheria, Pertussis, Tetanus Vaccination: Yes Review of Systems - Review of Systems Constitutional: No symptoms reported EENT: No symptoms reported Cardiovascular: No symptoms reported Respiratory: No symptoms reported Gastrointestinal: See HPI Genitourinary: No symptoms reported Male Genitourinary: No symptoms reported Musculoskeletal: No symptoms reported Skin: No symptoms reported Hematologic/Lymphatic: No symptoms reported Neurological/Psychological: No symptoms reported Physical Exam - Vital signs Vitals: Temp Pulse Resp BP Pulse Ox 97.8 F 75 16 127/81 H 98 07/29/16 03:01 07/29/16 03:01 07/29/16 03:01 07/29/16 03:01 07/29/16 03:01 Interpretation: Normal - General General appearance: Appears well, Alert In distress: None - HEENT Head: Normocephalic, Atraumatic Eyes: Normal Conjunctiva: Normal Pupils: PERRL Pharynx: Normal Neck: Supple. No: Lymphadenopathy - Respiratory Respiratory status: No respiratory distress Chest status: Nontender Breath sounds: Normal Chest palpation: Normal - Cardiovascular Rhythm: Regular Heart sounds: Normal auscultation Murmur: No - Abdominal Inspection: Normal Distension: No distension Bowel sounds: Normal Tenderness: Tender - RLQ Organomegaly: No organomegaly. No: Hepatomegaly, Splenomegaly - Back Back: Normal, Nontender. No: CVA tenderness - Extremities General upper extremity: Normal inspection, Nontender, Normal color, Normal ROM , Normal temperature General lower extremity: Normal inspection, Nontender, Normal color, Normal ROM , Normal temperature, Normal weight bearing. No: Alaina's sign - Neurological Neuro grossly intact: Yes Cognition: Normal Orientation: AAOx4 Ralph Coma Scale Eye Opening: Spontaneous Ralph Coma Scale Verbal: Oriented [place] Coma Scale Motor: Obeys Commands Ralph Coma Scale Total: 15 Speech: Normal Motor strength normal: LUE, RUE, LLE, RLE Sensory: Normal - Psychological Associated symptoms: Normal affect, Normal mood - Skin Skin Temperature: Warm Skin Moisture: Dry Skin Color: Normal Skin irregularity: negative: Rash Course - Re-evaluation Re-evalutation: 07/29/16 04:[address] merida about the potassium, and which type of CT to get. 07/29/16 04:58 repeat potassium 5.3, EKG NSR no changes . 07/29/16 05:37 stool hem negative. pain gone, he states it had moved to the left side after I examined him. Dr. merida OK sending hime home. CT showed possible adhesive changes RLQ only. - Vital Signs Vital signs: Temp Pulse Resp BP Pulse Ox 97.8 F 75 16 127/81 H 98 07/29/16 03:01 07/29/16 03:01 07/29/16 03:01 07/29/16 03:01 07/29/16 04:05 - Laboratory Result Diagrams: 07/29/16 03:25 07/29/16 04:25 Laboratory results interpreted by me: 07/29/16 07/29/16 07/29/16 03:25 03:25 03:30 RBC 5.84 H MCH 26.9 L RDW 18.1 H Potassium 6.0 H* Est GFR (Non-Af Amer) 59 L Urine Blood MODERATE H Ur Leukocyte Esterase TRACE H 07/29/16 04:25 RBC MCH RDW Potassium 5.3 H Est GFR (Non-Af Amer) Urine Blood Ur Leukocyte Esterase Discharge - Discharge Clinical Impression: Abdominal pain Qualifiers: Abdominal location: right lower quadrant Qualified Code(s): R10.31 - Right lower quadrant pain Condition: Good Disposition: HOME, SELF-CARE Instructions: Abdominal Pain ([facility]) Additional Instructions: see your doctor tomorrow to er if worse drink plenty of fluids Referrals: ZOE WILLS MD [Primary Care Provider] - Follow up tomorrow
[2016-07-29] MEDS ORDERED: KETOROLAC TROMETHAMINE INJ/PF 30 MG/1 ML SDV IV ONE (04:06)
[2016-07-29] MEDS ORDERED: NORMAL SALINE 1000 ML 1,000 ML IV ONE (04:06)
[2016-07-29 04:22] LABS: ADD ON TESTING BLD IN LAB ACKNOWLEDGE
[2016-07-29 04:34] LABS: ALCOHOL < 10 mg/dL (NONE DETECTED)
[2016-07-29 04:46] LABS: ANION GAP 10 (5-19); BLOOD UREA NITROGEN 17 mg/dL (7-20); CALCIUM 9.2 mg/dL (8.4-10.2); CARBON DIOXIDE 26 mmol/L (22-30); CHLORIDE 104 mmol/L (98-107); CREATININE RESULT 1.07 mg/dL (0.52-1.25); GLUCOSE 86 mg/dL (75-110); POTASSIUM 5.3 mmol/L (3.6-5.0); SODIUM 139.9 mmol/L (137-145)
[2016-07-29 04:55] LABS: URINE BARBITURATES SCREEN NEGATIVE; URINE METHADONE SCREEN NEGATIVE; URINE OPIATES LOW NEGATIVE; URINE PHENCYCLIDINE SCREEN NEGATIVE
--- NOTE | 2016-07-29 05:29 | RADIOLOGY REPORT (SQ) ---
EXAM DESCRIPTION: CT ABD/PELVIS NO ORAL OR IV COMPLETED DATE/TIME: 07/29/2016 5:10 am REASON FOR STUDY: acute onset right side abd pain COMPARISON: 09/25/2015. 04/26/2013. 07/29/2016. TECHNIQUE: CT scan of the abdomen and pelvis performed without intravenous or oral contrast. Images reviewed with lung, soft tissue, and bone windows. Reconstructed coronal and sagittal MPR images revi ewed. All images stored on PACS. All CT scanners at this facility use dose modulation, iterative reconstruction, and/or weight based d osing when appropriate to reduce radiation dose to as low as reasonably achievable (ALARA). [facility]: Dose Right [facility]: CareDose [facility]: Dose Right [facility]: Teradose 4D [facility]: XTWIP RADIATION DOSE: 11.65mGy. LIMITATIONS: None. FINDINGS: LOWER CHEST: Small coronary arterial calcification. NON-CONTRASTED LIVER, SPLEEN, ADRENALS: Evaluation limited by lack of IV contrast. No identified sign ificant masses. PANCREAS: No masses. No peripancreatic inflammatory changes. GALLBLADDER: Surgically absent. RIGHT KIDNEY AND URETER: Multiple likely benign cysts include a 1.2 cm exophytic hemorrhagic cyst wit hout suspicious interval change. LEFT KIDNEY AND URETER: Likely benign cysts include a chronic exophytic 9.5 cm left cystic mass witho ut suspicious interval change. AORTA AND RETROPERITONEUM: No aneurysm. No retroperitoneal masses or adenopathy. BOWEL AND PERITONEAL CAVITY: Suture material or calcification associated with the cecum closely juxta posed against the perineum of the right lower abdominal quadrant may indicate adhesive disease, image 70 of series 3. APPENDIX: Surgically absent. PELVIS, BLADDER, AND ABDOMINAL WALL:No abnormal masses. No free fluid. Bladder normal. BONES: [id number] lumbar dextro convexity. OTHER: No other significant finding. IMPRESSION: No acute findings. Possible adhesive disease of the right lower abdominal quadrant. TECHNICAL DOCUMENTATION: JOB ID: [id number] Quality ID # [id number]: Final reports with documentation of one or more dose reduction techniques (e.g., Au tomated exposure control, adjustment of the mA and/or kV according to patient size, use of iterative reconstruction technique) 2010 [employer]- All Rights Reserved
[2016-07-29 06:12] VITALS: BP 125/84
--- NOTE | 2016-07-29 09:12 | EKG REPORT ---
SEVERITY:- BORDERLINE ECG - SINUS RHYTHM PROBABLE LEFT ATRIAL ABNORMALITY BORDERLINE LEFT AXIS DEVIATION : Confirmed by: Denise Garcia MD 29-Jul-2016 09:11:57
== END 2016-07-29 05:45 | disposition home or self-care (01) ==
LOC: ER 02:57
DX: R10.31 Right lower quadrant pain (principal); R10.11 Right upper quadrant pain; R11.0 Nausea; R19.7 Diarrhea, unspecified; I10 Essential (primary) hypertension; F17.200 Nicotine dependence, unspecified, uncomplicated; Z87.19 Personal history of other diseases of the digestive system; Z90.49 Acquired absence of other specified parts of digestive tract; Z98.890 Other specified postprocedural states; Z88.8 Allergy status to other drugs, medicaments and biological substances; Z88.6 Allergy status to analgesic agent; Z87.442 Personal history of urinary calculi
CPT/HCPCS: 93005; 99284; 96361; 96374; 36415; 80307 ×2; 83690; 85025; 82272; 80048; 80053; 81001; 74176; 93010; J1885; J7030

== ENCOUNTER 2016-08-12 10:53 | Emergency (ER) | payer OTHER, MEDICARE ==
--- NOTE | 2016-08-12 11:10 | ER Document Report ---
ED Medical Screen (RME) - General Chief Complaint: General Weakness Stated Complaint: HEADACHE/ARM NUMBNESS Time Seen by Provider: 08/12/16 11:06 Mode of Arrival: Wheelchair Information source: Patient, Relative Notes: Patient is a 56-year-old man with a history of pancreatitis, bipolar affective disorder, panic attacks, hypothyroidism, dyslipidemia and active smoking. The patient presents to the emergency room after an episode of bilateral upper and lower weakness, dizziness, vertigo. The patient states that the symptoms started acutely yesterday morning before he went to the gym. Patient states he had a similar episode 6 weeks ago when he was told that he was lithium toxic and he was taken off of his lithium at that time. onset: 24 Hours ago TRAVEL OUTSIDE OF THE [place] IN LAST 30 DAYS: No - Related Data Allergies/Adverse Reactions: topiramate [From Topamax] Allergy (Verified 08/12/16 10:55) ziprasidone HCl [From Geodon] Allergy (Verified 08/12/16 10:55) ziprasidone mesylate [From Geodon] Allergy (Verified 08/12/16 10:55) Past Medical History - Social History Family history: Reviewed & Not Pertinent - Past Medical History Cardiac Medical History: Reports: Hx Hypertension Denies: Hx Coronary Artery Disease, Hx Heart Attack Pulmonary Medical History: Reports: Hx Pneumonia Denies: Hx Asthma, Hx Bronchitis, Hx COPD Neurological Medical History: Denies: Hx Cerebrovascular Accident, Hx Seizures Endocrine Medical History: Reports: Hx Hypothyroidism Renal/ Medical History: Reports: Hx Kidney Stones. Denies: Hx Peritoneal Dialysis GI Medical History: Reports: Hx Hiatal Hernia - x2 Musculoskeltal Medical History: Reports Hx Arthritis Psychiatric Medical History: Reports: Hx Bipolar Disorder, Hx Depression Past Surgical History: Reports: Hx Abdominal Surgery - colonoscopy 01/2013, SBO , Hx Appendectomy, Hx Cholecystectomy, Hx Kidney (Renal Surgery) - Left kidney cyst drainage, Hx Orthopedic Surgery - R elbow, R knee, Hx Tonsillectomy - Immunizations Hx Diphtheria, Pertussis, Tetanus Vaccination: Yes Physical Exam - Vital signs Vitals: Temp Pulse Resp BP Pulse Ox 98.2 F 64 18 144/94 H 98 08/12/16 10:55 08/12/16 10:55 08/12/16 10:55 08/12/16 10:55 08/12/16 10:55 Course - Vital Signs Vital signs: Temp Pulse Resp BP Pulse Ox 98.2 F 64 18 144/94 H 98 08/12/16 10:55 08/12/16 10:55 08/12/16 10:55 08/12/16 10:55 08/12/16 10:55
[2016-08-12 11:37] LABS: ABSOLUTE BASOPHILS # (AUTO) 0.1 10^3/uL (0.0-0.2); ABSOLUTE EOSINOPHILS # (AUTO) 0.2 10^3/uL (0.0-0.6); ABSOLUTE LYMPHOCYTES (AUTO) 1.8 10^3/uL (0.5-4.7); ABSOLUTE MONOCYTES (AUTO) 0.8 10^3/uL (0.1-1.4); ABSOLUTE NEUT (AUTO) 6.9 10^3/uL (1.7-8.2); BASOPHILS % (AUTO) 1.2 % (0-2); EOSINOPHILS % (AUTO) 2.2 % (0-6); HEMATOCRIT 47.8 % (37.9-51.0); HEMOGLOBIN 15.5 g/dL (13.5-17.0); HGB HCT DIFFERENCE -1.3; LYMPHOCYTES % (AUTO) 18.1 % (13-45); MEAN CORPUSCULAR HEMOGLOBIN 26.1 pg (27.0-33.4); MEAN CORPUSCULAR HGB CONC 32.4 g/dL (32.0-36.0); MEAN CORPUSCULAR VOLUME 81 fl (80-97); MONOCYTES % (AUTO) 7.8 % (3-13); RED BLOOD COUNT 5.94 10^6/uL (4.35-5.55); RED CELL DISTRIBUTION WIDTH 18.8 % (11.5-14.0); SEGMENTED NEUTROPHILS % (AUTO) 70.7 % (42-78); WHITE BLOOD COUNT 9.8 10^3/uL (4.0-10.5)
[2016-08-12 11:44] LABS: PROTHROMBIN TIME 12.6 SEC (11.4-15.4)
[2016-08-12 11:51] LABS: ALANINE AMINOTRANSFERASE 26 U/L (21-72); ALBUMIN 3.7 g/dL (3.5-5.0); ALKALINE PHOSPHATASE 45 U/L (38-126); ANION GAP 13 (5-19); ASPARTATE AMINO TRANSFERASE 20 U/L (17-59); BILIRUBIN,DIRECT 0.4 mg/dL (0.0-0.4); BILIRUBIN,TOTAL 0.6 mg/dL (0.2-1.3); BLOOD UREA NITROGEN 14 mg/dL (7-20); CALCIUM 9.1 mg/dL (8.4-10.2); CARBON DIOXIDE 27 mmol/L (22-30); CHLORIDE 102 mmol/L (98-107); CREATINE KINASE 107 U/L (55-170); CREATININE RESULT 1.24 mg/dL (0.52-1.25); GLUCOSE 89 mg/dL (75-110); SODIUM 141.5 mmol/L (137-145); TOTAL PROTEIN 6.9 g/dL (6.3-8.2)
--- NOTE | 2016-08-12 12:12 | RADIOLOGY REPORT (SQ) ---
EXAM DESCRIPTION: CT HEAD WITHOUT COMPLETED DATE/TIME: 08/12/2016 11:39 am REASON FOR STUDY: weakness, ambulatory dysfunction COMPARISON: CT brain 08/10/2013, 06/13/2016 TECHNIQUE: Axial images acquired through the brain without intravenous contrast. Images reviewed wi th bone, brain and subdural windows. Images stored on PACS. All CT scanners at this facility use dose modulation, iterative reconstruction, and/or weight based d osing when appropriate to reduce radiation dose to as low as reasonably achievable (ALARA). [facility]: Dose Right [facility]: CareDose [facility]: Dose Right [facility]: Teradose 4D [facility]: Smart Listar RADIATION DOSE: Up-to-date CT equipment and radiation dose reduction techniques were employed. CTDIv ol: 64.6 mGy. DLP: 1163 mGy-cm. mGy. LIMITATIONS: Mild motion artifact FINDINGS: VENTRICLES: Normal size and contour. CEREBRUM: No masses. No hemorrhage. No midline shift. Normal whitten/white matter differentiation. N o evidence for acute infarction. CEREBELLUM: No masses. No hemorrhage. No alteration of density. No evidence for acute infarction. EXTRAAXIAL SPACES: No fluid collections. No masses. ORBITS AND GLOBE: No intra- or extraconal masses. Normal contour of globe without masses. CALVARIUM: No fracture. PARANASAL SINUSES: No fluid or mucosal thickening. SOFT TISSUES: No mass or hematoma. OTHER: No other significant finding. IMPRESSION: NORMAL BRAIN CT WITHOUT CONTRAST. TECHNICAL DOCUMENTATION: JOB ID: [id number] Quality ID # [id number]: Final reports with documentation of one or more dose reduction techniques (e.g., Au tomated exposure control, adjustment of the mA and/or kV according to patient size, use of iterative reconstruction technique) 2010 [employer]- All Rights Reserved
--- NOTE | 2016-08-12 12:13 | RADIOLOGY REPORT (SQ) ---
EXAM DESCRIPTION: CHEST PA/LAT COMPLETED DATE/TIME: 08/12/2016 11:41 am REASON FOR STUDY: weakness COMPARISON: Two-view chest 06/15/2008 EXAM PARAMETERS: NUMBER OF VIEWS: two views TECHNIQUE: Digital Frontal and Lateral radiographic views of the chest acquired. RADIATION DOSE: NA LIMITATIONS: none FINDINGS: LUNGS AND PLEURA: No opacities, masses or pneumothorax. No pleural effusion. MEDIASTINUM AND HILAR STRUCTURES: No masses or contour abnormalities. HEART AND VASCULAR STRUCTURES: Heart normal size. No evidence for failure. BONES: No acute findings. HARDWARE: None in the chest. OTHER: No other significant finding. IMPRESSION: NO SIGNIFICANT RADIOGRAPHIC FINDING IN THE CHEST. TECHNICAL DOCUMENTATION: JOB ID: [id number] [employer]- All Rights Reserved
--- NOTE | 2016-08-12 12:30 | ER Document Report ---
ED General - General Chief Complaint: General Weakness Stated Complaint: HEADACHE/ARM NUMBNESS Time Seen by Provider: 08/12/16 11:06 Mode of Arrival: Wheelchair TRAVEL OUTSIDE OF THE [place] IN LAST 30 DAYS: No - HPI Patient complains to provider of: Concern for TIA Notes: Patient presents today concerned about having Tia symptoms. Patient states multiple times throughout last few days he has been having episodes where he loses control of his upper and lower extremities. Patient also states having difficulty ambulating. Patient states similar episodes occurred back in May. Patient otherwise states that approximately he did have a stroke possible to have an MRI however never followed up. Patient also states having intermittent dizziness however last episode was 24 hours prior to this visit. Patient is currently asymptomatic. Patient ambulated into the ER without difficulty at this time has no signs of stroke or TIA symptoms. Patient states he was seen in May and told that stop taking lithium because he was lithium toxic. Patient states he is compliant with this and no longer taking his lithium anymore. Patient currently states his PCP is Dr. Romero. Denies any other symptoms. Trauma denies fever chills nausea vomiting diarrhea. - Related Data Allergies/Adverse Reactions: topiramate [From Topamax] Allergy (Verified 08/12/16 10:55) ziprasidone HCl [From Geodon] Allergy (Verified 08/12/16 10:55) ziprasidone mesylate [From Geodon] Allergy (Verified 08/12/16 10:55) Past Medical History - General Information source: Patient, Relative - Social History Smoking Status: Unknown if Ever Smoked Family History: Reviewed & Not Pertinent Patient has suicidal ideation: No Patient has homicidal ideation: No - Past Medical History Cardiac Medical History: Reports: Hx Hypertension Denies: Hx Coronary Artery Disease, Hx Heart Attack Pulmonary Medical History: Reports: Hx Pneumonia Denies: Hx Asthma, Hx Bronchitis, Hx COPD Neurological Medical History: Denies: Hx Cerebrovascular Accident, Hx Seizures Endocrine Medical History: Reports: Hx Hypothyroidism Renal/ Medical History: Reports: Hx Kidney Stones. Denies: Hx Peritoneal Dialysis GI Medical History: Reports: Hx Hiatal Hernia - x2 Musculoskeltal Medical History: Reports Hx Arthritis Psychiatric Medical History: Reports: Hx Bipolar Disorder, Hx Depression Past Surgical History: Reports: Hx Abdominal Surgery - colonoscopy 01/2013, SBO , Hx Appendectomy, Hx Cholecystectomy, Hx Kidney (Renal Surgery) - Left kidney cyst drainage, Hx Orthopedic Surgery - R elbow, R knee, Hx Tonsillectomy - Immunizations Hx Diphtheria, Pertussis, Tetanus Vaccination: Yes Review of Systems - Review of Systems Constitutional: No symptoms reported EENT: No symptoms reported Cardiovascular: No symptoms reported Respiratory: No symptoms reported Gastrointestinal: No symptoms reported Genitourinary: No symptoms reported Male Genitourinary: No symptoms reported Musculoskeletal: Other - Loss of control of upper and lower extremities. Skin: No symptoms reported Hematologic/Lymphatic: No symptoms reported Neurological/Psychological: No symptoms reported Physical Exam - Vital signs Vitals: Temp Pulse Resp BP Pulse Ox 98.2 F 64 18 144/94 H 98 08/12/16 10:55 08/12/16 10:55 08/12/16 10:55 08/12/16 10:55 08/12/16 10:55 Interpretation: Normal - General General appearance: Appears well, Alert - HEENT Head: Normocephalic, Atraumatic Eyes: Normal Pupils: PERRL Neck: Normal. No: Carotid bruit - Respiratory Respiratory status: No respiratory distress Chest status: Nontender Breath sounds: Normal Chest palpation: Normal - Cardiovascular Rhythm: Regular Heart sounds: Normal auscultation Murmur: No - Abdominal Inspection: Normal Distension: No distension Bowel sounds: Normal Tenderness: Nontender Organomegaly: No organomegaly - Back Back: Normal, Nontender - Extremities General upper extremity: Normal inspection, Nontender, Normal color, Normal ROM , Normal temperature General lower extremity: Normal inspection, Nontender, Normal color, Normal ROM , Normal temperature, Normal weight bearing. 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 I did review CT scans chest x-ray and laboratory values with the patient. Patient is concerned that his Mcg rdw and rbc were read as low and high. I did explain to the patient that I have never made an emergency medicine diagnosis with the values that he can follow with his primary care physician however no signs of infection no signs of stroke no signs of intracranial bleed no signs of heart attack no signs of infection Patient is neurological examination otherwise is normal. I do not think patient is undergoing any stroke or TIA symptoms of that they are bilateral more global in nature. Discussed with the patient possibility of following up with a neurologist which upon review of past visits. Patient used to see Dr. Dubon. Patient states he did not see Dr. Dubon anymore but will follow with PCP for neurology referral. Also explained to the patient that I would start a 1 mg daily until he follows with PCP for further evaluation possible carotid Dopplers although no bruits were heard. Patient was ecstatic with his care and agree to follow-up with PCP 08/12/16 14:52 - Vital Signs Vital signs: Temp Pulse Resp BP Pulse Ox 98.1 F 58 L 12 138/85 H 97 08/12/16 12:48 08/12/16 12:48 08/12/16 12:48 08/12/16 12:48 08/12/16 12:48 - Laboratory Result Diagrams: 08/12/16 11:24 08/12/16 11:24 Laboratory results interpreted by me: 08/12/16 08/12/16 11:24 11:24 RBC 5.94 H [facility] 26.1 L RDW 18.8 H [place] < 0.2 L Discharge - Discharge Clinical Impression: Weakness, Loss of coordination Condition: Good Disposition: HOME, SELF-CARE Instructions: Weakness ([facility]), Neurologist Additional Instructions: At this time your CAT scan lab work revealed no critical pathology. If symptoms are not consistent with stroke or TIA that multiple side of your body are affected. I would highly recommend she follow-up with your primary care physician for further workup Dopplers of the carotid cardiac monitoring I also recommend she follow-up with a neurologist. At this time continue your home medication as previously prescribed I would recommend taking a baby aspirin 81 mg once a day ER symptoms worsen. Please stop smoking. Prescriptions: Aspirin [Aspirin 81 mg Chewable Tablet] 81 mg PO DAILY 30 Days Forms: Return to Work
[2016-08-12 12:49] VITALS: BP 138/85
--- NOTE | 2016-08-12 17:04 | EKG REPORT ---
SEVERITY:- BORDERLINE ECG - SINUS RHYTHM BORDERLINE T WAVE ABNORMALITIES : Confirmed by: Denise Garcia MD 12-Aug-2016 17:03:41
== END 2016-08-12 12:49 | disposition home or self-care (01) ==
LOC: ER 10:53
DX: R53.1 Weakness (principal); R27.8 Other lack of coordination; R51 Headache; R20.0 Anesthesia of skin
CPT/HCPCS: 36415; 70450; 71020; 80053; 80178; 82550; 82553; 85025; 85610; 93005; 93010; 99285

== ENCOUNTER 2016-09-15 10:28 | Emergency (ER) | payer OTHER, MEDICARE ==
[2016-09-15 10:34] VITALS: BP 155/87
--- NOTE | 2016-09-15 10:43 | ER Document Report ---
ED Medical Screen (RME) - General Chief Complaint: Urinary Problem Stated Complaint: BACK/ FLANK PAIN Time Seen by Provider: 09/15/16 10:40 Notes: Patient presents with bilateral flank pain. He states he has had this for over a month. He states it is severe and a spasm-like sensation. He states that he takes 2 Percocet a day and this does not work. He also states he has had some nausea but no vomiting or diarrhea. No fevers. He states he has been having orange discolored urine. He states he has a history of cysts on his kidneys and chronic pancreatitis. TRAVEL OUTSIDE OF THE [place] IN LAST 30 DAYS: No - Related Data Allergies/Adverse Reactions: topiramate [From Topamax] Allergy (Verified 09/15/16 10:31) ziprasidone HCl [From Geodon] Allergy (Verified 09/15/16 10:31) ziprasidone mesylate [From Geodon] Allergy (Verified 09/15/16 10:31) Past Medical History - Social History Family history: Reviewed & Not Pertinent - Past Medical History Cardiac Medical History: Reports: Hx Hypertension Denies: Hx Coronary Artery Disease, Hx Heart Attack Pulmonary Medical History: Reports: Hx Pneumonia Denies: Hx Asthma, Hx Bronchitis, Hx COPD Neurological Medical History: Denies: Hx Cerebrovascular Accident, Hx Seizures Endocrine Medical History: Reports: Hx Hypothyroidism Renal/ Medical History: Reports: Hx Kidney Stones. Denies: Hx Peritoneal Dialysis GI Medical History: Reports: Hx Hiatal Hernia - x2 Musculoskeltal Medical History: Reports Hx Arthritis Psychiatric Medical History: Reports: Hx Bipolar Disorder, Hx Depression Past Surgical History: Reports: Hx Abdominal Surgery - colonoscopy 01/2013, SBO , Hx Appendectomy, Hx Cholecystectomy, Hx Kidney (Renal Surgery) - Left kidney cyst drainage, Hx Orthopedic Surgery - R elbow, R knee, Hx Tonsillectomy - Immunizations Hx Diphtheria, Pertussis, Tetanus Vaccination: Yes Physical Exam - Vital signs Vitals: Temp Pulse Resp BP Pulse Ox 98.6 F 69 18 155/87 H 99 09/15/16 10:32 09/15/16 10:32 09/15/16 10:32 09/15/16 10:32 09/15/16 10:32 Course - Vital Signs Vital signs: Temp Pulse Resp BP Pulse Ox 98.6 F 69 18 155/87 H 99 09/15/16 10:32 09/15/16 10:32 09/15/16 10:32 09/15/16 10:32 09/15/16 10:32
[2016-09-15 10:55] LABS: APPEARANCE,URINE CLEAR; BILIRUBIN,URINE NEGATIVE (NEGATIVE); GLUCOSE, URINE NEGATIVE (NEGATIVE); KETONES,URINE NEGATIVE (NEGATIVE); LEUKOCYTE ESTERASE,URINE SMALL (NEGATIVE); NITRITE,URINE NEGATIVE (NEGATIVE); PROTEIN,URINE NEGATIVE (NEGATIVE); URINE SPECIFIC GRAVITY 1.006; UROBILINOGEN,URINE NEGATIVE mg/dL (<2.0)
[2016-09-15 11:00] LABS: ABSOLUTE BASOPHILS # (AUTO) 0.1 10^3/uL (0.0-0.2); ABSOLUTE EOSINOPHILS # (AUTO) 0.2 10^3/uL (0.0-0.6); ABSOLUTE LYMPHOCYTES (AUTO) 2.4 10^3/uL (0.5-4.7); ABSOLUTE MONOCYTES (AUTO) 0.9 10^3/uL (0.1-1.4); ABSOLUTE NEUT (AUTO) 7.8 10^3/uL (1.7-8.2); BASOPHILS % (AUTO) 0.7 % (0-2); HEMATOCRIT 45.8 % (37.9-51.0); HGB HCT DIFFERENCE -0.8; LYMPHOCYTES % (AUTO) 21.3 % (13-45); MEAN CORPUSCULAR HGB CONC 32.8 g/dL (32.0-36.0); MEAN CORPUSCULAR VOLUME 82 fl (80-97); MONOCYTES % (AUTO) 7.7 % (3-13); RED BLOOD COUNT 5.58 10^6/uL (4.35-5.55); RED CELL DISTRIBUTION WIDTH 21.4 % (11.5-14.0); SEGMENTED NEUTROPHILS % (AUTO) 68.3 % (42-78); WHITE BLOOD COUNT 11.4 10^3/uL (4.0-10.5)
[2016-09-15 11:13] LABS: ALANINE AMINOTRANSFERASE 37 U/L (21-72); ALBUMIN 4.3 g/dL (3.5-5.0); ALKALINE PHOSPHATASE 47 U/L (38-126); ANION GAP 9 (5-19); ASPARTATE AMINO TRANSFERASE 39 U/L (17-59); BILIRUBIN,DIRECT 0.3 mg/dL (0.0-0.4); BILIRUBIN,TOTAL 0.8 mg/dL (0.2-1.3); BLOOD UREA NITROGEN 21 mg/dL (7-20); CALCIUM 9.8 mg/dL (8.4-10.2); CARBON DIOXIDE 32 mmol/L (22-30); CHLORIDE 100 mmol/L (98-107); CREATININE RESULT 1.29 mg/dL (0.52-1.25); GLUCOSE 88 mg/dL (75-110); POTASSIUM 4.9 mmol/L (3.6-5.0); TOTAL PROTEIN 7.7 g/dL (6.3-8.2)
[2016-09-15] MEDS ORDERED: NORMAL SALINE 1000 ML 1,000 ML IV ONE (11:21)
--- NOTE | 2016-09-15 11:25 | ER Document Report ---
ED GI/ - General Chief Complaint: Urinary Problem Stated Complaint: BACK/ FLANK PAIN Time Seen by Provider: 09/15/16 10:40 Notes: Patient says he has been experiencing chronic intermittent pain in the right flank region for the past 3-4 weeks. Change from low-grade pain to constant more severe pain in the past 2 weeks. He saw his primary care physician, Dr. Wills, in the office Wednesday and was prescribed Percocet fives, but the patient says that is not helping his pain. Dr. Wills is supposed to be trying to arrange a follow-up appointment with the patient's urologist in [facility]. Patient says his pain comes around to the right front. Denies any nausea or vomiting. No change in bowel habits. Urine has been orange colored, but has not seen any blood. Denies fever. Patient has a history of kidney stones and also a history of a cyst on the left kidney that was drained here in December, last fall. PMH: Appendectomy, cholecystectomy, small bowel obstruction twice, pancreatitis , the latter felt to be due to a combination of Seroquel and alcohol. Patient is not drinking alcohol. History of hypertension, hypothyroid, and bipolar disorder. TRAVEL OUTSIDE OF THE [place] IN LAST 30 DAYS: No - Related Data Allergies/Adverse Reactions: topiramate [From Topamax] Allergy (Verified 09/15/16 10:31) ziprasidone HCl [From Geodon] Allergy (Verified 09/15/16 10:31) ziprasidone mesylate [From Geodon] Allergy (Verified 09/15/16 10:31) Past Medical History - Social History Smoking Status: Current Every Day Smoker Family History: Reviewed & Not Pertinent Patient has suicidal ideation: No Patient has homicidal ideation: No - Past Medical History Cardiac Medical History: Reports: Hx Hypertension Pulmonary Medical History: Reports: Hx Pneumonia Endocrine Medical History: Reports: Hx Hypothyroidism Renal/ Medical History: Reports: Hx Kidney Stones GI Medical History: Reports: Hx Hiatal Hernia - x2 Musculoskeltal Medical History: Reports Hx Arthritis Psychiatric Medical History: Reports: Hx Bipolar Disorder, Hx Depression Past Surgical History: Reports: Hx Abdominal Surgery - colonoscopy 01/2013, SBO , Hx Appendectomy, Hx Cholecystectomy, Hx Kidney (Renal Surgery) - Left kidney cyst drainage, Hx Orthopedic Surgery - R elbow, R knee, Hx Tonsillectomy - Immunizations Hx Diphtheria, Pertussis, Tetanus Vaccination: Yes Review of Systems - Review of Systems Notes: REVIEW OF SYSTEMS: CONSTITUTIONAL : Denies fever. EENT: Denies eye, ear, nose or mouth or throat pain or other symptoms. CARDIOVASCULAR: Denies chest pain. RESPIRATORY: Denies cough, chest congestion, or shortness of breath. GASTROINTESTINAL: See HPI. GENITOURINARY: See HPI. MUSCULOSKELETAL: Denies back or neck pain. Denies joint pain or swelling. SKIN: Denies rash or skin lesions. NEUROLOGICAL: Denies LOC or altered mental status. Denies headache. Denies sensory loss or motor deficits. ALL OTHER SYSTEMS REVIEWED AND NEGATIVE. Physical Exam - Vital signs Vitals: Temp Pulse Resp BP Pulse Ox 98.6 F 69 18 155/87 H 99 09/15/16 10:32 09/15/16 10:32 09/15/16 10:32 09/15/16 10:32 09/15/16 10:32 Interpretation: Normal - Notes Notes: PHYSICAL EXAMINATION: GENERAL: Well-appearing, in no acute distress. However, patient is very loud somewhat hyper became agitated with me to the point that he requested another physician. I instructed the nurses tell him that there was no other physician who was available to examine him. There will be another physician coming on duty at 2 PM which is over 2 hours from now, and I did not feel it appropriate to obligate that physician to seeing this patient either. HEAD: Atraumatic, normocephalic. EYES: Pupils equal round and reactive to light, extraocular movements intact. ENT: oropharynx clear without exudates. Moist mucous membranes. NECK: Normal range of motion, supple. LUNGS: Breath sounds clear and equal bilaterally. HEART: Regular rate and rhythm without murmurs. ABDOMEN: Soft, nontender. No guarding or rebound. BACK: Tender in the right flank region to palpation and percussion. EXTREMITIES: Normal range of motion without pain. NEUROLOGICAL: Normal speech, normal gait. Normal sensory, motor, and reflex exams. Awake, alert, and oriented x3. Cranial nerves normal. PSYCH: Normal mood, normal affect. SKIN: Warm, dry, no rashes. Course - Vital Signs Vital signs: Temp Pulse Resp BP Pulse Ox 98.6 F 69 18 155/87 H 99 09/15/16 10:32 09/15/16 10:32 09/15/16 10:32 09/15/16 10:32 09/15/16 10:32 - Laboratory Result Diagrams: 09/15/16 10:50 09/15/16 10:50 Laboratory results interpreted by me: 09/15/16 09/15/16 09/15/16 10:45 10:50 10:50 WBC 11.4 H RBC 5.58 H RDW 21.4 H Carbon Dioxide 32 H BUN 21 H Creatinine 1.29 H Est GFR (Non-Af Amer) 57 L Urine Blood SMALL H Ur Leukocyte Esterase SMALL H - Diagnostic Test Radiology reviewed: Image reviewed, Reports reviewed - CT scan shows cortical cysts of both kidneys. None of these are acute or with acute findings. No stone seen. Discharge - Discharge Clinical Impression: Renal cyst Condition: Stable Disposition: HOME, SELF-CARE Additional Instructions: RENAL CYSTS Your workup shows that you have cysts of both of your kidneys. They are stable in appearance. There is no evidence of infection. No evidence of kidney stones. Continue to take your current pain medications. Follow-up with your primary care physician, Dr. Wills as well as your urologist in [facility]. FOLLOW-UP CARE: If you have been referred to a physician for follow-up care, call the physician s office for an appointment as you were instructed or within the next two days. If you experience worsening or a significant change in your symptoms, notify the physician immediately or return to the Emergency Department at any time for re-evaluation. Referrals: ZOE WILLS MD [Primary Care Provider] - Follow up as needed
--- NOTE | 2016-09-15 12:11 | RADIOLOGY REPORT (SQ) ---
EXAM DESCRIPTION: CT ABD/PELVIS WITH IV ONLY COMPLETED DATE/TIME: 09/15/2016 11:55 am REASON FOR STUDY: Right flank pain, Hx stones, Hx left kidney cyst COMPARISON: 07/29/2016. TECHNIQUE: CT scan of the abdomen and pelvis performed using helical scanning technique with dynamic intravenous contrast injection. No oral contrast. Images reviewed with lung, soft tissue, and bone windows. Reconstructed coronal and sagittal MPR images reviewed. Delayed images for evaluation of the urinary system also acquired. All images stored on PACS. All CT scanners at this facility use dose modulation, iterative reconstruction, and/or weight based d osing when appropriate to reduce radiation dose to as low as reasonably achievable (ALARA). [facility]: Dose Right [facility]: CareDose [facility]: Dose Right [facility]: Teradose 4D [facility]: Somoto CONTRAST TYPE AND DOSE: contrast/concentration: Isovue 370.00 mg/ml; Total Contrast Delivered: 91.0 ml; Total Saline Delivered: 70.0 ml RENAL FUNCTION: BUN 21 creatinine 1.29. RADIATION DOSE: Up-to-date CT equipment and radiation dose reduction techniques were employed. CTDIv ol: NaN - NaN mGy. DLP: 0 mGy-cm.. LIMITATIONS: None. FINDINGS: LOWER CHEST: No significant findings. No nodules or infiltrates. LIVER: Normal size. No masses. No dilated ducts. SPLEEN: Normal size. No focal lesions. PANCREAS: No masses. No significant calcifications. No adjacent inflammation or peripancreatic fluid collections. Pancreatic duct not dilated. GALLBLADDER: Surgically absent. ADRENAL GLANDS: No significant masses or asymmetry. RIGHT KIDNEY AND URETER: Stable cortical cysts. No solid masses. No significant calcifications. No hydronephrosis or hydroureter. LEFT KIDNEY AND URETER: Stable cortical cysts, the largest measuring 9.5 cm. No solid masses. No s ignificant calcifications. No hydronephrosis or hydroureter. AORTA AND VESSELS: No aneurysm. No dissection. Renal arteries, SMA, celiac without stenosis. RETROPERITONEUM: No retroperitoneal adenopathy, hemorrhage or masses. BOWEL AND PERITONEAL CAVITY: No masses or inflammatory changes. No free fluid or peritoneal masses. APPENDIX: Surgically absent. PELVIS: No mass. No free fluid. Normal bladder. ABDOMINAL WALL: No masses. No hernias. BONES: No significant or acute findings. OTHER: No other significant finding. IMPRESSION: STABLE CORTICAL CYSTS IN BOTH KIDNEYS. NO OTHER SIGNIFICANT OR ACUTE FINDING IN THE ABD OMEN OR PELVIS ON CT SCAN WITH IV CONTRAST. TECHNICAL DOCUMENTATION: JOB ID: [id number] Quality ID # [id number]: Final reports with documentation of one or more dose reduction techniques (e.g., Au tomated exposure control, adjustment of the mA and/or kV according to patient size, use of iterative reconstruction technique) 2010 [employer]- All Rights Reserved
== END 2016-09-15 13:13 | disposition home or self-care (01) ==
LOC: ER 10:28
DX: N28.1 Cyst of kidney, acquired (principal); R39.198 Other difficulties with micturition; M54.9 Dorsalgia, unspecified; R10.9 Unspecified abdominal pain; F17.200 Nicotine dependence, unspecified, uncomplicated
CPT/HCPCS: 99284; 96360; 36415; 87086; 83690; 85025; 80053; 81001; 74177; J7030

== ENCOUNTER → 2017-04-09 | Outpatient (CLI) | payer MEDICARE ==
--- NOTE | 2017-04-09 15:57 | RADIOLOGY REPORT (SQ) ---
EXAM DESCRIPTION: CT ABDOMEN COMBO COMPLETED DATE/TIME: 04/09/2017 3:41 pm REASON FOR STUDY: OTHER CHRONIC PANCREATITIS K86.1 OTHER CHRONIC PANCREATITIS COMPARISON: 09/15/2016 TECHNIQUE: Four phase CT scan limited views of the abdomen performed with and without intravenous co ntrast and without oral contrast. Contrasted imaging performed using helical scanning technique with dynamic intravenous contrast injection. Thin sliced arterial and portal venous phase post contrast images acquired. Images reviewed with lung, soft tissue, and bone windows. Reconstructed coronal an d sagittal MPR images reviewed. Delayed images for evaluation of the urinary system also acquired an d evaluated. All images stored on PACS. All CT scanners at this facility use dose modulation, iterative reconstruction, and/or weight based d osing when appropriate to reduce radiation dose to as low as reasonably achievable (ALARA). [facility]: Dose Right [facility]: CareDose [facility]: Dose Right [facility]: Teradose 4D [facility]: W[employer]under CONTRAST TYPE AND DOSE: contrast/concentration: Isovue 370.00 mg/ml; Total Contrast Delivered: 43.0 ml; Total Saline Delivered: 74.0 ml RENAL FUNCTION: Creatinine 1.2 RADIATION DOSE: CT Rad equipment meets quality standard of care and radiation dose reduction techniq ues were employed. CTDIvol: 6.5 - 28.2 mGy. DLP: 1022 mGy-cm. . LIMITATIONS: None. FINDINGS: NONCONTRASTED IMAGING: No focal masses in the pancreas. No abnormal calcifications in the pancreas. POSTCONTRASTED IMAGING: LOWER CHEST: No significant findings. No nodules or infiltrates. LIVER: No masses or dilated ducts in the visualized liver. SPLEEN: No focal lesions in the visualized spleen. PANCREAS: No masses. No significant calcifications. No adjacent inflammation or peripancreatic flui d collections. Pancreatic duct not dilated. GALLBLADDER: Surgically absent. ADRENAL GLANDS: No significant masses or asymmetry. RIGHT KIDNEY AND URETER: Stable cortical cysts. No hydronephrosis. LEFT KIDNEY AND URETER: Stable cortical cysts, including a large upper pole cyst measuring 11.5 cm. AORTA AND VESSELS: Limited visualization without aneurysm. RETROPERITONEUM: No retroperitoneal adenopathy, hemorrhage or masses. BOWEL AND PERITONEAL CAVITY: Limited visualization. No obvious masses or inflammatory changes. ABDOMINAL WALL: Prior ventral hernia repair. BONY STRUCTURES: No acute findings. OTHER: No other significant finding. IMPRESSION: No evidence of pancreatic mass or pseudocyst. No significant change. TECHNICAL DOCUMENTATION: JOB ID: [id number] Quality ID # [id number]: Final reports with documentation of one or more dose reduction techniques (e.g., Au tomated exposure control, adjustment of the mA and/or kV according to patient size, use of iterative reconstruction technique) 2010 [employer]- All Rights Reserved
== END ==
LOC: RAD 14:14
PROVIDERS: ATTEND Family Medicine
DX: K86.1 Other chronic pancreatitis (principal)
CPT/HCPCS: 74170; 82565

== ENCOUNTER → 2017-12-08 | Outpatient (CLI) | payer MEDICARE ==
--- NOTE | 2017-12-08 13:02 | RADIOLOGY REPORT (SQ) ---
EXAM DESCRIPTION: ACUTE ABDOMEN SERIES COMPLETED DATE/TIME: 12/08/2017 10:39 am REASON FOR STUDY: LEFT UPPER QUADRANT PAIN R10.12 LEFT UPPER QUADRANT PAIN COMPARISON: None. NUMBER OF VIEWS: Three views. TECHNIQUE: Frontal chest, supine abdomen and upright/decubitus abdomen radiographic images acquired. LIMITATIONS: None. FINDINGS: CHEST: Lungs clear of infiltrates. FREE AIR: None. No abnormal gas collections. BOWEL GAS PATTERN: Nonobstructive pattern. No dilated loops or air fluid levels. CALCIFICATIONS: No suspicious calcifications. HARDWARE: None in the abdomen. SOFT TISSUES: No gross mass or suggestion of organomegaly. BONES: No acute fracture. No worrisome bone lesions. OTHER: No other significant finding. IMPRESSION: NO RADIOGRAPHIC EVIDENCE FOR ACUTE ABDOMINAL DISEASE. TECHNICAL DOCUMENTATION: JOB ID: [id number] [employer]- All Rights Reserved Reading location - IP/workstation name: [email or web address]
== END ==
LOC: OD 09:11
PROVIDERS: ATTEND Family Medicine
DX: R10.12 Left upper quadrant pain (principal)
CPT/HCPCS: 74022

== ENCOUNTER → 2017-12-16 | Outpatient (CLI) | payer MEDICARE ==
--- NOTE | 2017-12-16 11:56 | RADIOLOGY REPORT (SQ) ---
EXAM DESCRIPTION: U/S RETROPERITON (RENAL/AORTA) COMPLETED DATE/TIME: 12/16/2017 11:31 am REASON FOR STUDY: LLQ ABDOMINAL PAIN R10.9 UNSPECIFIED ABDOMINAL PAIN R10.32 LEFT LOWER QUADRANT P AIN COMPARISON: Bilateral renal ultrasound 10/18/2015 CT abdomen pelvis 09/15/2016 CT abdomen 04/09/2017 TECHNIQUE: Dynamic and static grayscale images acquired of the kidneys and bladder and recorded on P ACS. Additional selected color Doppler and spectral images recorded. LIMITATIONS: None. FINDINGS: RIGHT KIDNEY: Normal size, 12.2 cm in length. Normal echogenicity. No solid or suspicious masses. Multiple right renal cortical cysts, the largest is 3 cm diameter in the right lower pole ki dney. No hydronephrosis. No calcifications. LEFT KIDNEY: Normal size, 12.7 cm in length. Normal echogenicity. No solid or suspicious masses. Mu ltiple left renal cortical cysts, the largest is in the lower pole left kidney 11 cm in length. No h ydronephrosis. No calcifications. BLADDER: No masses. OTHER FINDINGS: No other significant finding. IMPRESSION: NORMAL RENAL AND BLADDER ULTRASOUND. TECHNICAL DOCUMENTATION: JOB ID: [id number] [employer]- All Rights Reserved Reading location - IP/workstation name: [email or web address]
== END ==
LOC: RAD 10:53
PROVIDERS: ATTEND Family Medicine
DX: R10.32 Left lower quadrant pain (principal)
CPT/HCPCS: 76770

== ENCOUNTER 2018-12-22 08:34 | Day surgery (SDC) | payer MEDICARE ==
[2018-12-15 09:49] LABS: HEMATOCRIT 50.7 % (37.9-51.0); HEMOGLOBIN 16.9 g/dL (13.5-17.0); MEAN CORPUSCULAR HEMOGLOBIN 28.3 pg (27.0-33.4); MEAN CORPUSCULAR HGB CONC 33.3 g/dL (32.0-36.0); MEAN CORPUSCULAR VOLUME 85 fl (80-97); PLATELET COUNT 223 10^3/uL (150-450); RED BLOOD COUNT 5.98 10^6/uL (4.35-5.55); RED CELL DISTRIBUTION WIDTH 19.7 % (11.5-14.0); WHITE BLOOD COUNT 8.5 10^3/uL (4.0-10.5)
--- NOTE | 2018-12-15 10:03 | RADIOLOGY REPORT (SQ) ---
EXAM DESCRIPTION: CHEST PA/LATERAL COMPLETED DATE/TIME: 12/15/2018 9:32 am REASON FOR STUDY: PRE-OP COMPARISON: 08/12/2016 EXAM PARAMETERS: NUMBER OF VIEWS: two views TECHNIQUE: Digital Frontal and Lateral radiographic views of the chest acquired. RADIATION DOSE: NA LIMITATIONS: none FINDINGS: LUNGS AND PLEURA: No opacities, masses or pneumothorax. No pleural effusion. MEDIASTINUM AND HILAR STRUCTURES: No masses or contour abnormalities. HEART AND VASCULAR STRUCTURES: Heart normal size. No evidence for failure. BONES: No acute findings. HARDWARE: None in the chest. OTHER: No other significant finding. IMPRESSION: 1. No significant interval changes since the prior examination dated 08/12/2016. No acu te findings. TECHNICAL DOCUMENTATION: JOB ID: [id number] [employer]- All Rights Reserved Reading location - IP/workstation name: [email or web address]
[2018-12-15 10:22] LABS: ANION GAP 13 (5-19); BLOOD UREA NITROGEN 22 mg/dL (7-20); CALCIUM 9.1 mg/dL (8.4-10.2); CARBON DIOXIDE 26 mmol/L (22-30); CHLORIDE 100 mmol/L (98-107); GLUCOSE 94 mg/dL (75-110); POTASSIUM 5.1 mmol/L (3.6-5.0)
--- NOTE | 2018-12-15 20:18 | EKG REPORT ---
SEVERITY:- ABNORMAL ECG - SINUS RHYTHM PROBABLE LEFT ATRIAL ABNORMALITY INCOMPLETE RIGHT BUNDLE BRANCH BLOCK : Confirmed by: Denise Garcia MD 15-Dec-2018 20:17:57
[~2018-12-22 08:34] MED LIST: ACETAMINOPHEN 325 MG TABLET PO PRN; BUPIVACAINE HCL 0.25 % INJ/PF (2.5 MG/1 ML) 30 ML VIAL ONE; CEFAZOLIN SODIUM 1 GM in DEXTROSE 5%-WATER 50 ML IV PRN; LIDOCAINE 0.5% INJ-PF (5 MG/ML) 50 ML SDV SUBCUT PRN; RINGERS SOLUTION,LACTATED 1,000 ML IV PRN
[2018-12-22] MEDS ORDERED: KETOROLAC TROMETHAMINE 60 MG/2 ML SDV ONE (08:39)
[2018-12-22] MEDS ORDERED: ONDANSETRON HCL INJ/PF 4 MG/2 ML SDV ONE (08:39)
[2018-12-22] MEDS ORDERED: GLYCOPYRROLATE 1 MG/5 ML VIAL ONE (08:39)
[2018-12-22] MEDS ORDERED: NEOSTIGMINE METHYLSULFATE 10 MG/10 ML VIAL ONE (08:39)
[2018-12-22] MEDS ORDERED: DEXAMETHASONE SOD PHOSPHATE INJ 4 MG/1 ML VIAL ONE (08:39)
[2018-12-22] MEDS ORDERED: LIDOCAINE 2% INJ-PF (20 MG/ML) 2 ML AMPUL ONE (08:39)
[2018-12-22] MEDS ORDERED: SUCCINYLCHOLINE CHLORIDE INJ 200 MG/10 ML VIAL ONE (08:39)
[2018-12-22] MEDS ORDERED: ROCURONIUM BROMIDE INJ 50 MG/5 ML VIAL IV ONE (08:39)
[2018-12-22] MEDS ORDERED: MIDAZOLAM 2 MG/2 ML INJ ONE ×2 (10:49→11:12)
[2018-12-22] MEDS ORDERED: MORPHINE SULFATE 10 MG/ML INJ ONE (11:12)
[2018-12-22] MEDS ORDERED: PROPOFOL INJ 200 MG/20 ML VIAL IV ONE (11:12)
[2018-12-22] MEDS ORDERED: BUPIVACAINE HCL 0.25 % INJ/PF (2.5 MG/1 ML) 30 ML VIAL ONE (11:12)
[2018-12-22] MEDS ORDERED: FENTANYL CITRATE INJ/PF 250 MCG/5 ML AMPULE ONE (11:12)
[2018-12-22] MEDS ORDERED: PROMETHAZINE HCL INJ 25 MG/1 ML VIAL IV PRN (11:55)
[2018-12-22] MEDS ORDERED: MEPERIDINE HCL/PF INJ 25 MG/1 ML DISP.SYRIN IV PRN (11:55)
[2018-12-22] MEDS ORDERED: CEFAZOLIN INJ 1 GM VIAL ONE (11:55)
[2018-12-22] MEDS ORDERED: DIPHENHYDRAMINE HCL 50 MG/ML VIAL IV PRN (11:55)
[2018-12-22] MEDS ORDERED: MORPHINE SULFATE 10 MG/ML INJ IV PRN (11:55)
[2018-12-22] MEDS ORDERED: FENTANYL CITRATE INJ/PF 100 MCG/2 ML AMPUL IV PRN (11:55)
--- NOTE | 2018-12-22 12:23 | Discharge Summary ---
Discharge Summary (SDC) - Discharge Final Diagnosis: ventral hernia Date of Surgery: 12/22/18 Discharge Date: 12/22/18 Condition: Good Referrals: ZOE WILLS MD [Primary Care Provider] - Discharge Diet: As Tolerated Discharge Activity: No Lifting Over 10 Pounds Report the Following to Your Physician Immediately: Shortness of Breath, Nausea, Vomiting, Increase in Pain, Fever over 101 Degrees - Patient needs a follow-up appointment with me in 2 weeks
[2018-12-22] MEDS ORDERED: OXYCODONE-ACETAMINOPHEN 5-325 MG TABLET PO PRN (12:28)
--- NOTE | 2018-12-22 12:28 | Operative Report ---
Nonrecallable Operative Report DATE OF SURGERY: 12/22/18 PREOPERATIVE DIAGNOSIS: Ventral hernia POSTOPERATIVE DIAGNOSIS: Ventral hernia OPERATION: Repair of ventral hernia SURGEON: JOSE A SOUZA 1ST [employer] SUPERVISOR: JANNA STOCK ANESTHESIA: GA TISSUE REMOVED OR ALTERED: None COMPLICATIONS: None ESTIMATED BLOOD LOSS: 10 cc INTRAOPERATIVE FINDINGS: See dictation PROCEDURE: Patient was brought to the operating room awake alert in stable condition placed the operative table supine position induced under general anesthesia intubated. The abdomen was prepped and draped in usual sterile fashion. After appropriate timeout and site verification a midline incision was used from approximately 4 cm above the umbilicus to 3 cm below it. The palpable hernia with in the umbilicus. Dissected down through subtenons tissue with Metzenbaum scissors once we reached the subcutaneous tissues we noted a piece of parietal tacks of mesh. We I dissected the umbilical stalk away from the anterior fascia and mesh noted that there was a small piece of preperitoneal fat that was incarcerated underneath the mesh throug a small defect in the mesh and into the umbilical stalk. The umbilical stalk was dissected away from the mesh and the small preperitoneal fat was removed. I then opened the mesh with Metzenbaum scissors and inserted my finger through it and into the abdominal cavity and felt circumferentially around the mesh noted that it was tacked laterally approximately 4 to 5 cm in the inferior and superiorly 3 to 4 cm was well covered and there was no other palpable ventral defects. I therefore closed the mesh defect with interrupted placed 0 Ethibond sutures. We then tacked the umbilical stalk back down to the anterior surface of the mesh and then closed the fascia over the mesh with interrupted #1 Vicryl sutures. Prior to doing this I dusted the mesh with Ancef powder. We then closed the skin with intracuticular 4-0 Biosyn and Dermabond skin glue was placed on top of that. This completed the procedure estimated blood loss was less than 10 cc sponge and needle counts were correct x2 patient was awakened in the operating explained transferred recovery in stable condition no complications Janna WOODRUFF was present for the entire case for help with wound retraction wound closure
[2018-12-22] MEDS ORDERED: OXYCODONE-ACETAMINOPHEN 5-325 MG TABLET ONE ×2 (13:19→13:29)
[2018-12-22 15:51] VITALS: BP 149/97
== END 2018-12-22 14:50 | disposition home or self-care (01) ==
LOC: OROUT 08:34
PROVIDERS: ATTEND Surgery
DX: K43.9 Ventral hernia without obstruction or gangrene (principal); E03.9 Hypothyroidism, unspecified; E78.00 Pure hypercholesterolemia, unspecified; I10 Essential (primary) hypertension; F17.210 Nicotine dependence, cigarettes, uncomplicated; Z79.899 Other long term (current) drug therapy; I25.10 Atherosclerotic heart disease of native coronary artery without angina pectoris
CPT/HCPCS: 93005; 36415; 85027; 80048; 71046; 93010; 49560; J2250; J0690; J3490 ×3; J1100; J1885; J3010; J2270; J2710; A9270; J0330; J2405; J7060; J2704; 752

== ENCOUNTER → 2019-03-14 | Outpatient (CLI) | payer MEDICARE ==
[2019-03-14 10:27] LABS: ABSOLUTE BASOPHILS # (AUTO) 0.1 10^3/uL (0.0-0.2); ABSOLUTE EOSINOPHILS # (AUTO) 0.2 10^3/uL (0.0-0.6); ABSOLUTE LYMPHOCYTES (AUTO) 1.6 10^3/uL (0.5-4.7); ABSOLUTE NEUT (AUTO) 6.3 10^3/uL (1.7-8.2); BASOPHILS % (AUTO) 0.9 % (0-2); EOSINOPHILS % (AUTO) 1.8 % (0-6); HEMATOCRIT 49.3 % (37.9-51.0); HEMOGLOBIN 16.5 g/dL (13.5-17.0); MEAN CORPUSCULAR HGB CONC 33.6 g/dL (32.0-36.0); MEAN CORPUSCULAR VOLUME 87 fl (80-97); MONOCYTES % (AUTO) 11.3 % (3-13); PLATELET COUNT 220 10^3/uL (150-450); RED BLOOD COUNT 5.69 10^6/uL (4.35-5.55); RED CELL DISTRIBUTION WIDTH 17.4 % (11.5-14.0); TOTAL CELLS COUNTED % (AUTO) 100 %; WHITE BLOOD COUNT 9.2 10^3/uL (4.0-10.5)
[2019-03-14 10:30] LABS: APPEARANCE,URINE CLEAR; BILIRUBIN,URINE NEGATIVE (NEGATIVE); COLOR,URINE STRAW; GLUCOSE, URINE NEGATIVE (NEGATIVE); KETONES,URINE NEGATIVE (NEGATIVE); LEUKOCYTE ESTERASE,URINE TRACE (NEGATIVE); NITRITE,URINE NEGATIVE (NEGATIVE); PROTEIN,URINE NEGATIVE (NEGATIVE); URINE SPECIFIC GRAVITY 1.003; UROBILINOGEN,URINE NEGATIVE mg/dL (<2.0)
[2019-03-14 11:00] LABS: ALBUMIN 3.8 g/dL (3.5-5.0); ALKALINE PHOSPHATASE 84 U/L (38-126); ANION GAP 10 (5-19); ASPARTATE AMINO TRANSFERASE 22 U/L (17-59); BILIRUBIN,TOTAL 0.5 mg/dL (0.2-1.3); BLOOD UREA NITROGEN 23 mg/dL (7-20); CALCIUM 9.3 mg/dL (8.4-10.2); CARBON DIOXIDE 29 mmol/L (22-30); CHLORIDE 98 mmol/L (98-107); GLUCOSE 97 mg/dL (75-110); POTASSIUM 4.8 mmol/L (3.6-5.0); TOTAL PROTEIN 6.8 g/dL (6.3-8.2)
== END ==
LOC: OD 09:46
PROVIDERS: ATTEND Internal Medicine Nephrology
DX: N18.3 Chronic kidney disease, stage 3 (moderate) (principal); N28.1 Cyst of kidney, acquired; N40.0 Benign prostatic hyperplasia without lower urinary tract symptoms
CPT/HCPCS: 36415; 80053; 81001; 85025

== ENCOUNTER 2019-03-25 10:27 | Emergency (ER) | payer OTHER, MEDICARE ==
[2019-03-25] MEDS ORDERED: KETOROLAC TROMETHAMINE INJ/PF 30 MG/1 ML SDV IV ONE (11:01)
[2019-03-25] MEDS ORDERED: PREDNISONE 20 MG TABLET PO ONE (11:01)
[2019-03-25] MEDS ORDERED: IPRATROPIUM/ALBUTEROL 0.5-2.5 MG/3 ML AMPUL NEB ONE (11:01)
--- NOTE | 2019-03-25 11:03 | ER Document Report ---
ED Medical Screen (RME) - General Chief Complaint: Cough Stated Complaint: COUGHING OUT BLOOD Time Seen by Provider: 03/25/19 10:54 Primary Care Provider: Alverto REID MD [Primary Care Provider] - Follow up as needed TRAVEL OUTSIDE OF THE [place] IN LAST 30 DAYS: No - HPI Notes: 03/25/19 11:02 58-year-old male to the emergency department with complaints of hacking productive cough, body aches for the past 3 days. He states that yesterday he started to have blood with the production. He states that half of it is phlegm and half of it is blood. He denies any chills. He admits to subjective fevers. He denies any night sweats. He states that every time he coughs he has right- sided chest pain. He states that he does smoke. He also admits to a headache that every time he cough gets much worse. He admits to nasal congestion. He denies any ear pain or sore throat. I performed a brief medical screening exam on the patient determined that he will need further evaluation and management by me inside provider. I placed initial orders to help expedite his care. - Related Data Allergies/Adverse Reactions: topiramate [From Topamax] Allergy (Verified 09/15/16 10:31) ziprasidone HCl [From Geodon] Allergy (Verified 09/15/16 10:31) ziprasidone mesylate [From Geodon] Allergy (Verified 09/15/16 10:31) Home Medications: synthroid, omeprazol, simvistatin, flomax Past Medical History - Social History Frequency of alcohol use: None Drug Abuse: None Family history: Reviewed & Not Pertinent - Past Medical History Cardiac Medical History: Reports: Hx Hypertension Denies: Hx Coronary Artery Disease, Hx Heart Attack Pulmonary Medical History: Reports: Hx Pneumonia Denies: Hx Asthma, Hx Bronchitis, Hx COPD Neurological Medical History: Denies: Hx Cerebrovascular Accident, Hx Seizures Endocrine Medical History: Reports: Hx Hypothyroidism Renal/ Medical History: Reports: Hx Kidney Stones. Denies: Hx Peritoneal Dialysis GI Medical History: Reports: Hx Hiatal Hernia - x2 Musculoskeltal Medical History: Denies Hx Arthritis Psychiatric Medical History: Reports: Hx Bipolar Disorder, Hx Depression Past Surgical History: Reports: Hx Abdominal Surgery - colonoscopy 01/2013, SBO, Hx Appendectomy, Hx Cholecystectomy, Hx Kidney (Renal Surgery) - Left kidney cyst drainage, Hx Orthopedic Surgery - R elbow, R knee, Hx Tonsillectomy - Immunizations Hx Diphtheria, Pertussis, Tetanus Vaccination: Yes Physical Exam - Vital signs Vitals: Temp Pulse Resp BP Pulse Ox 98.2 F 84 18 116/69 99 03/25/19 10:30 03/25/19 10:30 03/25/19 10:30 03/25/19 10:30 03/25/19 10:30 Course - Vital Signs Vital signs: Temp Pulse Resp BP Pulse Ox 98.2 F 84 18 116/69 99 03/25/19 10:30 03/25/19 10:30 03/25/19 10:30 03/25/19 10:30 03/25/19 10:30 Doctor's Discharge - Discharge Referrals: Alverto REID MD [Primary Care Provider] - Follow up as needed
[2019-03-25 11:49] LABS: HEMATOCRIT 44.7 % (37.9-51.0); HEMOGLOBIN 14.8 g/dL (13.5-17.0); MEAN CORPUSCULAR HGB CONC 33.2 g/dL (32.0-36.0); MEAN CORPUSCULAR VOLUME 87 fl (80-97); PLATELET COUNT 355 10^3/uL (150-450); RED BLOOD COUNT 5.12 10^6/uL (4.35-5.55); RED CELL DISTRIBUTION WIDTH 17.9 % (11.5-14.0); WHITE BLOOD COUNT 22.8 10^3/uL (4.0-10.5)
--- NOTE | 2019-03-25 12:04 | RADIOLOGY REPORT (SQ) ---
EXAM DESCRIPTION: CHEST 2 VIEWS COMPLETED DATE/TIME: 03/25/2019 11:45 am REASON FOR STUDY: cough, SOB, hemoptysis COMPARISON: 12/15/2018 EXAM PARAMETERS: NUMBER OF VIEWS: two views TECHNIQUE: Digital Frontal and Lateral radiographic views of the chest acquired. RADIATION DOSE: NA LIMITATIONS: none FINDINGS: LUNGS AND PLEURA: Parenchymal opacity at the right base. Left lung is clear. MEDIASTINUM AND HILAR STRUCTURES: No masses or contour abnormalities. HEART AND VASCULAR STRUCTURES: Heart normal size. No evidence for failure. BONES: No acute findings. HARDWARE: None in the chest. OTHER: No other significant finding. IMPRESSION: Right lower lobe pneumonia. TECHNICAL DOCUMENTATION: JOB ID: [id number] [employer]- All Rights Reserved Reading location - IP/workstation name: [email or web address]
[2019-03-25 12:07] LABS: ALBUMIN 3.1 g/dL (3.5-5.0); ALKALINE PHOSPHATASE 180 U/L (38-126); ANION GAP 12 (5-19); ASPARTATE AMINO TRANSFERASE 23 U/L (17-59); BILIRUBIN,DIRECT 0.5 mg/dL (0.0-0.4); BILIRUBIN,TOTAL 0.6 mg/dL (0.2-1.3); BLOOD UREA NITROGEN 16 mg/dL (7-20); CALCIUM 8.7 mg/dL (8.4-10.2); CARBON DIOXIDE 29 mmol/L (22-30); CHLORIDE 97 mmol/L (98-107); GLUCOSE 97 mg/dL (75-110); TOTAL PROTEIN 6.5 g/dL (6.3-8.2)
[2019-03-25 12:12] LABS: ABSOLUTE LYMPHOCYTES# (MANUAL) 0.7 10^3/uL (0.5-4.7); ABSOLUTE MONOCYTES # (MANUAL) 2.5 10^3/uL (0.1-1.4); BASOPHILS % (MANUAL) 0 % (0-2); EOSINOPHILS % (MANUAL) 1 % (0-6); LYMPHOCYTES % (MANUAL) 3 % (13-45); MONOCYTES % (MANUAL) 11 % (3-13); SEGMENTED NEUTROPHILS % (MAN) 85 % (42-78); TOTAL CELLS COUNTED 100
[2019-03-25 12:13] LABS: ANISOCYTOSIS 1+; PLATELET COMMENT ADEQUATE
[2019-03-25] MEDS ORDERED: NORMAL SALINE 1000 ML 1,000 ML IV ONE (14:23)
[2019-03-25] MEDS ORDERED: METOCLOPRAMIDE HCL INJ/PF 10 MG/2 ML SDV IV ONE (14:23)
[2019-03-25] MEDS ORDERED: DIPHENHYDRAMINE HCL 50 MG/ML VIAL IV ONE (14:24)
--- NOTE | 2019-03-25 14:25 | ER Document Report ---
ED Respiratory Problem - General Chief Complaint: Cough Stated Complaint: COUGHING OUT BLOOD Time Seen by Provider: 03/25/19 10:54 Primary Care Provider: Alverto REID MD [ACTIVE STAFF] - Follow up as needed Notes: Patient is a 58-year-old male who presents to the emergency department with a chief complaint of "coughing up blood." Patient has had a cough for the past 5 days. He has a history of pneumonia. Patient is an everyday smoker. TRAVEL OUTSIDE OF THE [place] IN LAST 30 DAYS: No - Related Data Allergies/Adverse Reactions: topiramate [From Topamax] Allergy (Verified 09/15/16 10:31) ziprasidone HCl [From Geodon] Allergy (Verified 09/15/16 10:31) ziprasidone mesylate [From Geodon] Allergy (Verified 09/15/16 10:31) Home Medications: synthroid, omeprazol, simvistatin, flomax Past Medical History - Social History Smoking Status: Current Every Day Smoker Frequency of alcohol use: None Drug Abuse: None Family History: Reviewed & Not Pertinent Patient has suicidal ideation: No Patient has homicidal ideation: No - Past Medical History Cardiac Medical History: Reports: Hx Hypertension Denies: Hx Coronary Artery Disease, Hx Heart Attack Pulmonary Medical History: Reports: Hx Pneumonia Denies: Hx Asthma, Hx Bronchitis, Hx COPD Neurological Medical History: Denies: Hx Cerebrovascular Accident, Hx Seizures Endocrine Medical History: Reports: Hx Hypothyroidism Renal/ Medical History: Reports: Hx Kidney Stones. Denies: Hx Peritoneal Dialysis GI Medical History: Reports: Hx Hiatal Hernia - x2 Musculoskeletal Medical History: Denies Hx Arthritis Psychiatric Medical History: Reports: Hx Bipolar Disorder, Hx Depression Past Surgical History: Reports: Hx Abdominal Surgery - colonoscopy 01/2013, SBO, Hx Appendectomy, Hx Cholecystectomy, Hx Kidney (Renal Surgery) - Left kidney cyst drainage, Hx Orthopedic Surgery - R elbow, R knee, Hx Tonsillectomy - Immunizations Hx Diphtheria, Pertussis, Tetanus Vaccination: Yes Review of Systems - Review of Systems Notes: REVIEW OF SYSTEMS: CONSTITUTIONAL : Denies recent illness. Denies recent unintentional weight loss. Denies fever, chills, or sweats. EENT: Denies eye, ear, throat, or mouth pain, discharge, or symptoms. Denies nasal or sinus congestion. CARDIOVASCULAR: Denies chest pain. RESPIRATORY: See HPI. GASTROINTESTINAL: Denies nausea, vomiting, and diarrhea. Denies abdominal pain. Denies constipation. GENITOURINARY: Denies difficulty urinating, burning, blood in urine, urgency or frequency. MUSCULOSKELETAL: Denies neck and back pain. Denies joint pain or swelling. SKIN: Denies rash, itchiness, or lesions HEMATOLOGIC : Denies easy bruising or bleeding. LYMPHATIC: Denies swollen, painful, enlarged glands. NEUROLOGICAL: Denies no numbness or tingling denies weakness. Denies headache. Denies altered mental status. Denies alteration in speech. PSYCHIATRIC: Denies stress, anxiety, alteration in sleep patterns, or depression. All other systems reviewed and negative. Physical Exam - Vital signs Vitals: Temp Pulse Resp BP Pulse Ox 98.2 F 84 18 116/69 99 03/25/19 10:30 03/25/19 10:30 03/25/19 10:30 03/25/19 10:30 03/25/19 10:30 - Notes Notes: PHYSICAL EXAMINATION: GENERAL: Appears well, healthy, well-nourished, no acute distress. HEAD: Normocephalic, atraumatic. EYES: PERRL, conjunctiva normal, all extraocular movements intact, sclera nonicteric ENT: Moist mucous membranes. NECK: Supple, no noticeable swelling, redness, rash. Normal range of motion. LUNGS: Equal breath sounds bilaterally and clear to auscultation. No wheezes rales or rhonchi. CARDIOVASCULAR: S1-S2, regular rate, regular rhythm. Radial pulses 2+, normal. ABDOMEN: Normoactive bowel sounds. Soft, nontender, no guarding, no rebound tenderness, and no masses palpated. EXTREMITIES: Normal strength and range of motion, no pitting or edema. No cyanosis. NEUROLOGICAL: Moves all extremities upon command. Strength 5/5 in all extremities. PSYCH: Normal mood, normal affect. SKIN: Warm, dry. No rash, lesions, ulcerations noted. Normal skin turgor. Course - Re-evaluation Re-evalutation: 03/25/19 15:01 Patient's chest x-ray shows a right lower lobe pneumonia. This is consistent with his history. Patient has a leukocytosis of 22,000 with a left shift. Chemistries showed an elevated alkaline phosphatase. Albumin is low. Patient will receive a liter of fluids. Patient's blood pressure is currently 100/62. Patient is not tachycardic. he will be given Reglan, Benadryl, and Levaquin. Will reassess the patient after medications are given. 03/25/19 16:30 Patient states that he is feeling somewhat better after he received his antibiotics. He will be sent home on Levaquin. And a very low suspicion for a pulmonary emboli, as the patient is not tachycardic. He will follow-up with his primary care provider. Follow-up precautions were given. Verbal discharge instructions were given to the patient. They verbalized understanding. They are stable for discharge. - Vital Signs Vital signs: Temp Pulse Resp BP Pulse Ox 99.4 F 84 16 122/79 97 03/25/19 16:39 03/25/19 10:30 03/25/19 16:39 03/25/19 16:39 03/25/19 16:39 - Laboratory Result Diagrams: 03/25/19 11:32 03/25/19 11:32 Laboratory results interpreted by me: 03/25/19 03/25/19 11:32 11:32 WBC 22.8 H RDW 17.9 H Seg Neuts % (Manual) 85 H Lymphocytes % (Manual) 3 L Abs Neuts (Manual) 19.4 H Abs Monocytes (Manual) 2.5 H Chloride 97 L Direct Bilirubin 0.5 H Alkaline Phosphatase 180 H Albumin 3.1 L - EKG Interpretation by Me Additional EKG results interpreted by me: Sinus rhythm. Heart rate 85. OK 172; QRS 116; QT 356; QTc 424. No ST elevation or depression noted. There is an incomplete RBB noted. Discharge - Discharge Clinical Impression: Right lower lobe pneumonia Qualifiers: Pneumonia type: due to unspecified organism Qualified Code(s): J18.9 - Pneumonia, unspecified organism Condition: Stable Disposition: HOME, SELF-CARE Additional Instructions: You have been diagnosed with a pneumonia. It is very important that you take all of your antibiotics until they are gone even if you are feeling better. Please return to the emergency department immediately if you began having worsening shortness of breath, become confused, have worsening pain, pass out, have persistent vomiting that prevents you from being able to drink fluids for more than 12 hours, or have any other symptoms that are worrisome to you. Please follow-up with your primary care doctor in the next 1-2 days. Prescriptions: Levofloxacin [Levaquin 750 mg Tablet] 750 mg PO DAILY #7 tablet Referrals: Alverto REID MD [ACTIVE STAFF] - Follow up as needed
[2019-03-25] MEDS ORDERED: LEVOFLOXACIN 750 MG/D5W RTU 750 MG/150 ML RTUPB IV ONE (14:26)
[2019-03-25 16:46] VITALS: BP 122/79
--- NOTE | 2019-03-25 23:43 | EKG REPORT ---
SEVERITY:- ABNORMAL ECG - SINUS RHYTHM PROBABLE LEFT ATRIAL ABNORMALITY INCOMPLETE RIGHT BUNDLE BRANCH BLOCK : Confirmed by: Mohinder Gandara 25-Mar-2019 23:42:19
== END 2019-03-25 16:46 | disposition home or self-care (01) ==
LOC: ER 10:27
DX: J18.9 Pneumonia, unspecified organism (principal); R04.2 Hemoptysis; I10 Essential (primary) hypertension; F17.200 Nicotine dependence, unspecified, uncomplicated; Z88.8 Allergy status to other drugs, medicaments and biological substances
CPT/HCPCS: 93005; 94640; 99284; 96375; 96365; 36415; 87040; 85025; 80053; 71046; 93010; J1200; J1885; J2765; J7512; J7030; J1956; J7620

== ENCOUNTER 2019-04-28 11:53 | Emergency (ER) | payer OTHER, MEDICARE ==
--- NOTE | 2019-04-28 12:59 | ER Document Report ---
ED Medical Screen (RME) - General Chief Complaint: Headache Stated Complaint: COUGHING UP BLOOD/HEADACHE Time Seen by Provider: 04/28/19 12:54 Primary Care Provider: ZOE WILLS MD [Primary Care Provider] - Follow up as needed Notes: HPI: 58-year-old male presenting for coughing up blood today. Patient states he was diagnosed with pneumonia 3 weeks ago took almost 2 weeks of Levaquin, still having some shortness of breath and dizziness at times over the last 2 to 3 days no chest pain but does report mild shortness of breath. Patient states today he started coughing up blood clots called his PCP and was referred into the emergency department for evaluation I have greeted and performed a rapid initial assessment of this patient. A comprehensive ED assessment and evaluation of the patient, analysis of test results and completion of the medical decision making process will be conducted by additional ED providers PHYSICAL EXAMINATION: GENERAL: Well-appearing, well-nourished and in mild acute distress. HEAD: Atraumatic, normocephalic. EYES: sclera anicteric, conjunctiva are normal. ENT: Moist mucous membranes. NECK: Normal range of motion LUNGS: Normal work of breathing, slight rhonchi in the posterior lower lobes HEART: 2+ radial pulses bilaterally, regular rate and rhythm ABD: limited by positioning for exam in triage. EXTREMITIES: no pitting or edema. No cyanosis. NEUROLOGICAL: No focal neurological deficits. Moves all extremities spontaneously and on command. PSYCH: Normal mood, normal affect. SKIN: Warm, Dry, normal turgor, no rashes or lesions noted. TRAVEL OUTSIDE OF THE [place] IN LAST 30 DAYS: No - Related Data Allergies/Adverse Reactions: topiramate [From Topamax] Allergy (Verified 09/15/16 10:31) ziprasidone HCl [From Geodon] Allergy (Verified 09/15/16 10:31) ziprasidone mesylate [From Geodon] Allergy (Verified 09/15/16 10:31) Past Medical History - Social History Family history: Reviewed & Not Pertinent - Past Medical History Cardiac Medical History: Reports: Hx Hypertension Denies: Hx Coronary Artery Disease, Hx Heart Attack Pulmonary Medical History: Reports: Hx Pneumonia Denies: Hx Asthma, Hx Bronchitis, Hx COPD Neurological Medical History: Denies: Hx Cerebrovascular Accident, Hx Seizures Endocrine Medical History: Reports: Hx Hypothyroidism Renal/ Medical History: Reports: Hx Kidney Stones. Denies: Hx Peritoneal Dialysis GI Medical History: Reports: Hx Hiatal Hernia - x2 Musculoskeltal Medical History: Denies Hx Arthritis Psychiatric Medical History: Reports: Hx Bipolar Disorder, Hx Depression Past Surgical History: Reports: Hx Abdominal Surgery - colonoscopy 01/2013, SBO, Hx Appendectomy, Hx Cholecystectomy, Hx Kidney (Renal Surgery) - Left kidney cyst drainage, Hx Orthopedic Surgery - R elbow, R knee, Hx Tonsillectomy - Immunizations Hx Diphtheria, Pertussis, Tetanus Vaccination: Yes Physical Exam - Vital signs Vitals: Temp Pulse Resp BP Pulse Ox 98.1 F 64 16 168/100 H 97 04/28/19 12:24 04/28/19 12:24 04/28/19 12:24 04/28/19 12:24 04/28/19 12:24 Course - Vital Signs Vital signs: Temp Pulse Resp BP Pulse Ox 98.1 F 64 16 168/100 H 97 04/28/19 12:24 04/28/19 12:24 04/28/19 12:24 04/28/19 12:24 04/28/19 12:24 Doctor's Discharge - Discharge Referrals: ZOE WILLS MD [Primary Care Provider] - Follow up as needed
[2019-04-28 13:13] LABS: INTERNATIONAL RATION (INR) 0.94; PROTHROMBIN TIME 12.6 SEC (11.4-15.4)
[2019-04-28 13:20] LABS: ABSOLUTE BASOPHILS # (AUTO) 0.1 10^3/uL (0.0-0.2); ABSOLUTE EOSINOPHILS # (AUTO) 0.4 10^3/uL (0.0-0.6); ABSOLUTE LYMPHOCYTES (AUTO) 2.3 10^3/uL (0.5-4.7); ABSOLUTE MONOCYTES (AUTO) 0.6 10^3/uL (0.1-1.4); ABSOLUTE NEUT (AUTO) 4.4 10^3/uL (1.7-8.2); BASOPHILS % (AUTO) 1.1 % (0-2); EOSINOPHILS % (AUTO) 4.8 % (0-6); HEMATOCRIT 48.6 % (37.9-51.0); HEMOGLOBIN 16.8 g/dL (13.5-17.0); LYMPHOCYTES % (AUTO) 29.8 % (13-45); MEAN CORPUSCULAR HEMOGLOBIN 29.8 pg (27.0-33.4); MEAN CORPUSCULAR HGB CONC 34.6 g/dL (32.0-36.0); MEAN CORPUSCULAR VOLUME 86 fl (80-97); MONOCYTES % (AUTO) 7.3 % (3-13); PLATELET COUNT 209 10^3/uL (150-450); RED BLOOD COUNT 5.64 10^6/uL (4.35-5.55); RED CELL DISTRIBUTION WIDTH 19.6 % (11.5-14.0); TOTAL CELLS COUNTED % (AUTO) 100 %; WHITE BLOOD COUNT 7.7 10^3/uL (4.0-10.5)
--- NOTE | 2019-04-28 13:22 | RADIOLOGY REPORT (SQ) ---
EXAM DESCRIPTION: CHEST 2 VIEWS COMPLETED DATE/TIME: 04/28/2019 1:12 pm REASON FOR STUDY: coughing up blood COMPARISON: 03/25/2019 EXAM PARAMETERS: NUMBER OF VIEWS: two views TECHNIQUE: Digital Frontal and Lateral radiographic views of the chest acquired. RADIATION DOSE: NA LIMITATIONS: none FINDINGS: LUNGS AND PLEURA: Improved right basilar aeration with persistent right lower lobe medial consolidation with obscuration of the hemidiaphragm. Unremarkable left hemithorax. No pneumothorax. Likely trace effusion on the right. MEDIASTINUM AND HILAR STRUCTURES: No masses or contour abnormalities. HEART AND VASCULAR STRUCTURES: Heart normal size. No evidence for failure. BONES: No acute findings. HARDWARE: None in the chest. OTHER: No other significant finding. IMPRESSION: Improved but persistent right lower lobe consolidation compatible with pneumonia. TECHNICAL DOCUMENTATION: JOB ID: [id number] [employer]- All Rights Reserved Reading location - IP/workstation name: [email or web address]
[2019-04-28 13:32] LABS: ALBUMIN 4.5 g/dL (3.5-5.0); ALKALINE PHOSPHATASE 81 U/L (38-126); ANION GAP 6 (5-19); ASPARTATE AMINO TRANSFERASE 28 U/L (17-59); BILIRUBIN,DIRECT 0.1 mg/dL (0.0-0.4); BLOOD UREA NITROGEN 22 mg/dL (7-20); CALCIUM 9.8 mg/dL (8.4-10.2); CARBON DIOXIDE 33 mmol/L (22-30); CHLORIDE 101 mmol/L (98-107); GLUCOSE 83 mg/dL (75-110); POTASSIUM 5.1 mmol/L (3.6-5.0)
--- NOTE | 2019-04-28 16:36 | ER Document Report ---
ED General - General Chief Complaint: Shortness Of Breath Stated Complaint: COUGHING UP BLOOD/HEADACHE Time Seen by Provider: 04/28/19 12:54 Primary Care Provider: ZOE WILLS MD [Primary Care Provider] - Follow up as needed Notes: 58-year-old man presents to the emergency department with hemoptysis which began today. He has been treated for pneumonia in the past had completed his antibiotics and felt that he was doing better. He denies fever, shortness of breath, or chest pain. TRAVEL OUTSIDE OF THE [place] IN LAST 30 DAYS: No - Related Data Allergies/Adverse Reactions: topiramate [From Topamax] Allergy (Verified 09/15/16 10:31) ziprasidone HCl [From Geodon] Allergy (Verified 09/15/16 10:31) ziprasidone mesylate [From Geodon] Allergy (Verified 09/15/16 10:31) Home Medications: Amlodipine, Tamsulosin, Levofloaxin, Prednison Past Medical History - Social History Smoking Status: Current Every Day Smoker Family History: Reviewed & Not Pertinent Patient has suicidal ideation: No Patient has homicidal ideation: No - Past Medical History Cardiac Medical History: Reports: Hx Hypertension Denies: Hx Coronary Artery Disease, Hx Heart Attack Pulmonary Medical History: Reports: Hx Pneumonia Denies: Hx Asthma, Hx Bronchitis, Hx COPD Neurological Medical History: Denies: Hx Cerebrovascular Accident, Hx Seizures Endocrine Medical History: Reports: Hx Hypothyroidism Renal/ Medical History: Reports: Hx Kidney Stones. Denies: Hx Peritoneal Dialysis GI Medical History: Reports: Hx Hiatal Hernia - x2 Musculoskeletal Medical History: Denies Hx Arthritis Psychiatric Medical History: Reports: Hx Bipolar Disorder, Hx Depression Past Surgical History: Reports: Hx Abdominal Surgery - colonoscopy 01/2013, SBO, Hx Appendectomy, Hx Cholecystectomy, Hx Kidney (Renal Surgery) - Left kidney cyst drainage, Hx Orthopedic Surgery - R elbow, R knee, Hx Tonsillectomy - Immunizations Hx Diphtheria, Pertussis, Tetanus Vaccination: Yes Review of Systems - Review of Systems Notes: Constitutional: Negative for fever. HENT: Negative for sore throat. Eyes: Negative for visual changes. Cardiovascular: Negative for chest pain. Respiratory: + Cough + hemoptysis Gastrointestinal: Negative for abdominal pain, vomiting or diarrhea. Genitourinary: Negative for dysuria. Musculoskeletal: Negative for back pain. Skin: Negative for rash. Neurological: Negative for headaches, weakness or numbness. 10 point ROS negative except as marked above and in HPI. Physical Exam - Vital signs Vitals: Temp Pulse Resp BP Pulse Ox 98.1 F 64 16 168/100 H 97 04/28/19 12:24 04/28/19 12:24 04/28/19 12:24 04/28/19 12:24 04/28/19 12:24 - Notes Notes: PHYSICAL EXAMINATION: Physical Exam: General: Well-nourished well-developed 58-year-old male in no acute distress HEENT: NC/AT, pupils equal round and reactive to light, MM moist,nares clear, oropharynx clear, airway patent Neck: supple, no adenopathy, no masses. Good range of motion Lungs: clear, no wheezing, no rales no rhonchi CVS: Regular rate and rhythm no murmur gallop or rub Abdomen: Soft, active, nontender, no masses, no hepatosplenomegaly Ext: No edema, clubbing or cyanosis. Neuro: Alert and responsive, moving all 4 extremities on command, cranial nerves intact, no focal findings Skin: Intact no open lesions, no rash PSYCH: Normal mood, normal affect. Course - Re-evaluation Re-evalutation: 04/28/19 18:42 58-year-old man with hemoptysis, history of pneumonia. Chest x-ray reveals right lower lobe infiltrate, no consolidation. CT scan of the chest reveals a medial basal segment of the right lower lobe with pneumonia and volume loss. There is no obvious endobronchial mass. Patient is also noted to have a giant left renal cyst. I discussed these findings with the patient and explained that we will cover him with antibiotics he will be given a referral to pulmonology for evaluation of his right lower bronchial tube. He has an appointment with the urologist. - Vital Signs Vital signs: Temp Pulse Resp BP Pulse Ox 98.1 F 64 16 168/100 H 97 04/28/19 12:24 04/28/19 12:24 04/28/19 12:24 04/28/19 12:24 04/28/19 12:24 - Laboratory Result Diagrams: 04/28/19 13:00 04/28/19 13:00 Laboratory results interpreted by me: 04/28/19 04/28/19 13:00 13:00 RBC 5.64 H RDW 19.6 H Potassium 5.1 H Carbon Dioxide 33 H BUN 22 H Discharge - Discharge Clinical Impression: Hemoptysis, Cyst of left kidney Right lower lobe pneumonia Qualifiers: Pneumonia type: due to unspecified organism Qualified Code(s): J18.9 - Pneumonia, unspecified organism Condition: Good Disposition: HOME, SELF-CARE Instructions: Pneumonia ([facility]), Hemoptysis ([facility]) Additional Instructions: Please take the medication as prescribed cefdinir, please follow-up with the marine extension agent, return to the emergency department if needed. HOME CARE INSTRUCTIONS & INFORMATION: Thank you for choosing us for your medical needs. We hope you're satisfied with the care you received. After you leave, you must properly care for your problem and, at the same time, observe its progress. Any condition can change. Some illnesses can change rapidly over hours or days. If your condition worsens, return to the Emergency Department or see your physician promptly. ABOUT YOUR X-RAYS AND EKG'S: If you had an EKG or X-rays taken, they have been read by the Emergency Physician. The X-rays and EKG's will also be read by a Radiologist or Assistant Clinical Director within 24 hours. If discrepancies are noted, you will be notified by telephone. Please be certain the ED has a correct telephone number & address where you can be reached. Also, realize that some fractures or abnormalities do not show up on initial X-rays. If your symptoms continue, see your physician. ABOUT YOUR LABORATORY TEST: If you had laboratory tests, the results have been reviewed by the Emergency Physician. Some test results (for example cultures) may not be available for several days. You will be contacted if any test result shows you need additional treatment. Please be certain the ED has a correct telephone number and address where you can be reached. ABOUT YOUR MEDICATIONS: You will receive instructions on how to take your medicine on the prescription label you receive. Additional information may be provided by the Pharmacy. If you have questions afterwards, call the ED for clarification or further instructions. Some prescribed medications may cause drowsiness. Do not perform tasks such as driving a car or operating machinery without consulting your Pharmacist. If you feel you need a refill of pain m edication, your condition will need re-evaluation. Please do not call for a refill of any medication. ABOUT YOUR SIGNATURE: Signature of this document acknowledges to followin. Understanding that you received emergency treatment and that you may be released before al medical problems are known or treated. Please be certain the ED has a correct phone number & address where you can be reached. 2. Acknowledgement that you will arrange for follow-up care as recommended. 3. Authorization for the Emergency Physician to provide information to your follow-up Physician in order to maximize your care. AT ANY TIME, IF YOUR SYMPTOMS CHANGE SIGNIFICANTLY OR WORSEN OR YOU DEVELOP NEW SYMPTOMS, RETURN TO THE EMERGENCY DEPARTMENT IMMEDIATELY FOR RE-EVALUATION. OUR GOAL IS TO PROVIDE EXCELLENT MEDICAL CARE! WE HOPE THAT WE HAVE MET YOUR EXPECTATIONS DURING YOUR EMERGENCY DEPARTMENT VISIT AND THAT YOU FEEL YOU HAVE RECEIVED EXCELLENT CARE! Prescriptions: Cefdinir 300 mg PO BID #20 capsule Referrals: ZOE WILLS MD [Primary Care Provider] - Follow up as needed HAJA VILLEGAS MD [ACTIVE STAFF] - Follow up as needed
[2019-04-28] MEDS ORDERED: NORMAL SALINE 1000 ML 1,000 ML IV ONE (16:38)
--- NOTE | 2019-04-28 17:42 | RADIOLOGY REPORT (SQ) ---
EXAM DESCRIPTION: CT CHEST WITH COMPLETED DATE/TIME: 04/28/2019 5:14 pm REASON FOR STUDY: hemoptysis COMPARISON: CT scan 2017 TECHNIQUE: CT scan of the chest performed using helical scanning technique with dynamic intravenous contrast injection. Images reviewed with lung, soft tissue and bone windows. Reconstructed coronal and sagittal MPR and MIP images reviewed. All images stored on PACS. All CT scanners at this facility use dose modulation, iterative reconstruction, and/or weight based d osing when appropriate to reduce radiation dose to as low as reasonably achievable (ALARA). [facility]: Dose Right [facility]: CareDose [facility]: Dose Right [facility]: Teradose 4D [facility]: [employer] CONTRAST TYPE AND DOSE: contrast/concentration: Isovue 350.00 mg/ml; Total Contrast Delivered: 80.0 ml; Total Saline Delivered: 55.0 ml RENAL FUNCTION: GFR > 60. RADIATION DOSE: CT Rad equipment meets quality standard of care and radiation dose reduction techniq ues were employed. CTDIvol: 7.8 mGy. DLP: 311 mGy-cm. . LIMITATIONS: None. FINDINGS: LUNGS AND PLEURA: There is extensive volume loss and air bronchograms in the medial basal segment of the right lower lobe. Remaining lungs are clear. HILAR AND MEDIASTINAL STRUCTURES: No identified masses or abnormal nodes. HEART AND VASCULAR STRUCTURES: No aneurysm or dissection. No central pulmonary emboli. No pericardi al effusion. HARDWARE: None in the chest. UPPER ABDOMEN: 10 cm left renal cysts. THYROID AND OTHER SOFT TISSUES: No masses. No adenopathy. BONES: No significant finding. OTHER: No other significant finding. IMPRESSION: Medial basal segment right lower lobe pneumonia with volume loss. No obvious endobronch ial mass. Giant left renal cysts. COMMENT: Recommend follow-up. Worrisome for occult endobronchial lesion. TECHNICAL DOCUMENTATION: JOB ID: [id number] Quality ID # [id number]: Final reports with documentation of one or more dose reduction techniques (e.g., Au tomated exposure control, adjustment of the mA and/or kV according to patient size, use of iterative reconstruction technique) 2010 [employer]- All Rights Reserved Reading location - IP/workstation name: [email or web address]
[2019-04-28 19:17] VITALS: BP 159/91
== END 2019-04-28 19:19 | disposition home or self-care (01) ==
LOC: ER 11:53
DX: R04.2 Hemoptysis (principal); N28.1 Cyst of kidney, acquired; J18.9 Pneumonia, unspecified organism; R51 Headache; R06.02 Shortness of breath; I10 Essential (primary) hypertension; Z90.49 Acquired absence of other specified parts of digestive tract; Z87.442 Personal history of urinary calculi
CPT/HCPCS: 99284; 96360; 36415; 85025; 85610; 80053; 71046; 71260; J7030